=== PATIENT | male | born 1960 | race African-American/Black ===

== ENCOUNTER 2020-07-26 18:53 | Inpatient (IN) | payer MEDICAID ==
[~2020-07-26] VITALS: Ht 170.2 cm; Wt 64.6 kg
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
[2020-07-26] MEDS ORDERED: ASPIRIN CHEWABLE 81 MG TABLET. PO ONE (19:45)
[2020-07-26] MEDS ORDERED: IV NORMAL SALINE 1000ML BAG 1,000 ML IV ONE (19:45)
[2020-07-26 20:05] LABS: BASO % 0 % (0-3); EOS % 0 % (0-3); HEMATOCRIT 35.5 % (39.0-53.0); HEMOGLOBIN 11.6 g/dL (13.0-17.5); LYMPH # 0.8 x10^3/uL (1.0-4.8); LYMPH % 20 % (24-48); MEAN CORPUSCULAR HEMOGLOBIN 25 pg (25-35); MEAN CORPUSCULAR HGB CONC 33 g/dL (31-37); MEAN CORPUSCULAR VOLUME 77 fL (79-100); MONO # 0.2 x10^3/uL (0.0-1.1); MONO % 6 % (0-9); NEUT % 74 % (31-73); PLATELET COUNT 78 x10^3/uL (140-400); RED BLOOD COUNT 4.61 x10^6/uL (4.30-5.70); RED CELL DISTRIBUTION WIDTH 20.6 % (11.5-14.5)
--- NOTE | 2020-07-26 20:17 | RAD ---
Exam: Chest one view INDICATION: Chest pain TECHNIQUE: Frontal view of the chest Comparisons: None FINDINGS: The cardiomediastinal silhouette and pulmonary vessels are within normal limits. The lung and pleural spaces are clear. IMPRESSION: No acute cardiopulmonary process. Electronically signed by: En Robertson MD (07/26/2020 8:15 PM) [facility]
--- NOTE | 2020-07-26 20:19 | EKG ---
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
[2020-07-26 20:24] LABS: CALCIUM 8.8 mg/dL (8.5-10.1); CREATININE 1.2 mg/dL (0.7-1.3); GFR 61.6; POTASSIUM 4.1 mmol/L (3.5-5.1)
[2020-07-26 20:29] LABS: ALBUMIN 3.8 g/dL (3.4-5.0); ALBUMIN/GLOBULIN RATIO 0.7 (1.0-1.7); TOTAL BILIRUBIN 1.3 mg/dL (0.2-1.0); TOTAL PROTEIN 9.2 g/dL (6.4-8.2)
[2020-07-26] MEDS ORDERED: NITROGLYCERIN SUBLINGUAL 0.4 MG BOTTLE OF 25. SL PRN ×2 (20:30→21:00)
[2020-07-26] MEDS ORDERED: MORPHINE SULFATE 4 MG/ML VIAL. IV ONE ×2 (20:30→23:00)
[2020-07-26 20:33] LABS: PLT ESTIMATE DECREASED (ADEQUATE)
[2020-07-26 20:36] LABS: ANISOCYTOSIS MOD; HYPOCHROMIA SLIGHT; TARGET CELLS OCC
--- NOTE | 2020-07-26 20:43 | RAD ---
Exam: CT head and cervical spine without contrast INDICATION: Fall to back of head TECHNIQUE: Sequential axial images through the head and cervical spine were obtained without the admi nistration of IV contrast. Comparisons: None FINDINGS: Head: No focal parenchymal lesion or hemorrhage is identified. There is no midline shift or sulcal effaceme nt. No acute vascular territory infarction is identified. Monahan-white distinction is preserved. The ventricular system is within normal limits without compression hydrocephalus. The basal cisterns are well maintained. The visualized portions of the paranasal sinuses and mastoid air cells are well-pneumatized. No acute fractures. Cervical spine: Straightening of cervical spine which may positional. Vertebral body heights are well-maintained. Fracture to the cervical spine is not identified. Multilevel spondylotic change in the cervical spine with greatest degenerative disc disease at C4-C5 and C5-C6. Visualized paraspinal soft tissues are unremarkable. IMPRESSION: 1. No acute intracranial abnormality. 2. Negative CT C-spine for acute traumatic injury. Exposure: One or more of the following in the visualized dose reduction techniques were utilized for this examination: 1. Automated exposure control 2. Adjustment of the MA and/or KV according to patient size Use of iterative of reconstructive technique Electronically signed by: En Robertson MD (07/26/2020 8:41 PM) [facility]
[2020-07-26] MEDS ORDERED: ONDANSETRON PF 4 MG/2 ML VIAL. IVP ONE (20:45)
[2020-07-26] MEDS ORDERED: ACETAMINOPHEN 325 MG TABLET. PO PRN (21:00)
--- NOTE | 2020-07-26 21:42 | RAD ---
Exam: Right knee 4 views INDICATION: Fall, right lateral knee TECHNIQUE: Frontal, lateral and oblique views of the right knee Comparisons: None FINDINGS: Intramedullary nail noted in the distal femur with numerous fixation screws. There is a fracture defo rmity noted at the distal metaphysis seen best on lateral view. Severe degenerative change is noted a t the knee joint. Diffuse osteopenia. Soft tissues are unremarkable. IMPRESSION: Postoperative changes with chronic deformity at the right knee. Cortical step-off at the distal femor al metaphysis seen best on lateral view which could be chronic in etiology. No definite acute fractur es Electronically signed by: En Robertson MD (07/26/2020 9:40 PM) [facility]
[2020-07-26] MEDS ORDERED: HALOPERIDOL LACTATE 5 MG/ML VIAL. IVP PRN (22:45)
[2020-07-26] MEDS ORDERED: LIDO:MAALOX 1:1 20 ML SINGLE DOSE. PO PRN (22:45)
[2020-07-26] MEDS: THIAMINE 100 MG TABLET. PO SCH (23:00)
[2020-07-26 23:45] VITALS: BP 137/89
[2020-07-26] MEDS ORDERED: ONDANSETRON PF 4 MG/2 ML VIAL. IVP PRN (23:45)
--- NOTE | 2020-07-26 23:45 | NUR ---
Admit from ED to [facility] room 200 via [facility]. Patient transferred self from [facility] to bed independently sliding over to bed. Alert on arrival. Agitated. Demanding. , Tamela, , at bedside. Patient c/o N/V but request food and soda. Patient reports he drinks ETOH "occasionally, 2 times a week". ,Tamela, reports patient drinks pint of Vodka daily. Patient reports he does not take any medications at home but then says he has Asthma and takes Albuterol Inhaler. Orientated to room and call light. Reviewed POC to include Lab draws, tele monitor and not to get out of bed without assist. Verbalized understanding. In bed eating box lunch. Call light at hand. Bed alarm on.
[2020-07-27] MEDS ORDERED: VENTOLIN HFA18 GM INH (01:28)
[2020-07-27 04:12] VITALS: BP 134/80
[2020-07-27 07:00] VITALS: BP 142/84
[2020-07-27 07:44] LABS: AMPHETAMINE/METHAMPHETAMINE NEG (NEG); BARBITURATES NEG (NEG); BENZODIAZEPINES NEG (NEG); CANNABINOIDS NEG (NEG); COCAINE NEG (NEG); METHADONE NEG (NEG); OPIATES POS (NEG); PHENCYCLIDINE NEG (NEG)
--- NOTE | 2020-07-27 08:15 | NUR ---
Pt demanding food and drinks as well as "morphine, 4 mg". Pt very lethargic and unable to keep eyes open. Pt stating his stomach hurts, although, continues to ask for copious amounts of food and drinks. Pt offered GI cocktail and declined. Explained to patient that morphine is no longer available and that the physician would need to be contacted for stronger pain medication. Pt then asking for IVP Ativan. at bedside shortly after and declining Ativan for patient due to his drowsiness. Pt resting and at bedside. Call light within reach.
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
[2020-07-27] MEDS: FOLIC ACID 1 MG TABLET. PO SCH (09:32)
[2020-07-27] MEDS: MULTIVITAMIN with MINERAL TABLET. PO SCH (09:32)
[2020-07-27] MEDS: THIAMINE 100 MG TABLET. PO SCH (09:32)
[2020-07-27 11:00] VITALS: BP 117/76
[2020-07-27] MEDS ORDERED: guaiFENesin ORAL 200 MG/10 ML LIQUID. PO PRN (11:00)
[2020-07-27] MEDS ORDERED: ACETAMINOPHEN 650 MG SUPP.RECT. PR PRN (11:00)
[2020-07-27] MEDS ORDERED: LORazepam 0.5 MG TABLET PO PRN (11:00)
[2020-07-27] MEDS ORDERED: ALBUTEROL SULFATE 2.5 MG/3 ML NEBU. NEB PRN (11:00)
[2020-07-27] MEDS ORDERED: cloNIDine HCL 0.1 MG TABLET PO PRN (11:00)
[2020-07-27] MEDS ORDERED: MULTIVIT INFUSN,ADULT 4,VIT K 10 ML, THIAMINE INJ 100 MG, FOLIC ACID INJ 1 MG in IV NOR... IV ONE (11:00)
[2020-07-27] MEDS ORDERED: SODIUM PHOSPHATES 19/7GM 133 ML ENEMA. PR PRN (11:00)
[2020-07-27] MEDS ORDERED: ACETAMINOPHEN 325 MG TABLET. PO PRN (11:00)
[2020-07-27] MEDS ORDERED: NON FORMULARY ITEM (Albuterol Sulfate (Ventolin Hfa Inhaler) 2 PUFF) INH PRN (11:00)
[2020-07-27] MEDS ORDERED: MAG HYDROX/ALUMINUM HYD/SIMETH 30 ML ORAL.SUSP PO PRN (11:00)
[2020-07-27] MEDS ORDERED: ONDANSETRON PF 4 MG/2 ML VIAL. IV PRN (11:00)
[2020-07-27] MEDS ORDERED: DOCUSATE SODIUM 100 MG CAPSULE. PO PRN (11:00)
[2020-07-27] MEDS ORDERED: 0.9 % SODIUM CHLORIDE 10 ML DISP.SYRIN. IV PRN (11:00)
[2020-07-27] MEDS ORDERED: IV NORMAL SALINE 1000ML BAG 1,000 ML IV SCH (11:00)
[2020-07-27] MEDS: PANTOPRAZOLE IV PUSH 40 MG VIAL. IVP SCH (11:28)
[2020-07-27] MEDS: ENOXAPARIN 40 MG/0.4 ML SYRINGE. SQ SCH (11:32)
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
--- NOTE | 2020-07-27 11:57 | NUR ---
SS following for discharge planning. SS reviewed pt chart and discussed with pt RN. pt is from home and is currently on room air. PAT team consulted for ETOH. Pt on CIWA protocol. Discharge plan is to home when medically ready. SS will continue to follow for discharge planning.
--- NOTE | 2020-07-27 12:26 | PDOC2 ---
BENITO LOPEZ SUPPORT COORDINATOR 07/27/20 1226: CARDIAC CONSULT DATE OF CONSULT Date of Consult DATE: 07/27/20 TIME: 12:16 REASON FOR CONSULT Reason for Consult: Chest pain REFERRING PHYSICIAN Referring Physician: Dr. Muhammad SOURCE Source: Chart review, Patient HISTORY OF PRESENT ILLNESS HISTORY OF PRESENT ILLNESS This is a 59 yo male who presented secondary to chest pain and nausea/vomiting. Patient is very difficult historian as he is very drowsy. Reportedly fell in the bathroom 2 days ago. Reports he was getting up off the stool and felt dizzy and passed out. Family at bedside reports he had been drinking prior to this occurring. Got up and headed back to his bed and reports his right leg gave out on him and he fell to the ground again, which is where found him on the floor. Developed nausea and vomiting that day, which persisted. Yesterday, developed sharp pain in his central chest/epigastric region. Pain persisted so he came to the ED for further evaluation and treatment. He denies any diaphore sis, palpitations, or shortness of breath. Has a history of hypertension and possibly AFIB. Moved here from [place] 1 month ago and has not taken any of his routine medications as he has not estab lished care with a PCP here. 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) PAST SURGICAL HISTORY Past Surgical History: Cholecystectomy, Cataract Removal, Colon Resection FAMILY HISTORY Family History: Hypertension SOCIAL HISTORY Smoke: No ALCOHOL: heavy Drugs: None Lives: with Family CURRENT MEDICATIONS CURRENT MEDICATIONS Current Medications Medications (Trade) Dose Ordered Sig/Kyler Route PRN Reason Start Time Stop Time Status Last Admin Dose Admin Aspirin (Aspirin Chewable) 162 mg 1X ONCE PO 07/26/20 19:45 07/26/20 20:29 DC 07/26/20 20:35 Sodium Chloride 1,000 ml @ 150 mls/hr 1X ONCE IV 07/26/20 19:45 07/27/20 02:24 DC 07/26/20 20:36 Nitroglycerin (Nitrostat) 0.4 mg PRN Q5MIN PRN SL CHEST PAIN 07/26/20 20:30 07/26/20 21:04 DC 07/26/20 20:41 Morphine Sulfate (Morphine Sulfate) 4 mg 1X ONCE IV 07/26/20 20:30 07/26/20 20:31 DC 07/26/20 20:36 Ondansetron HCl (Zofran) 4 mg 1X ONCE IVP 07/26/20 20:45 07/26/20 20:46 DC 07/26/20 20:52 Morphine Sulfate (Morphine Sulfate) 4 mg 1X ONCE IV 07/26/20 23:00 07/26/20 23:01 DC 07/26/20 22:40 Multivitamins (Thera M Plus) 1 tab DAILY PO 07/27/20 09:00 07/27/20 09:32 Folic Acid (Folic Acid) 1 mg DAILY PO 07/27/20 09:00 07/27/20 09:32 Thiamine Mononitrate (Vitamin B-1) 100 mg DAILY PO 07/26/20 23:00 07/27/20 09:32 Lorazepam (Ativan Inj) 2 mg PRN Q1HR PRN IV For CIWA 15 or greater 07/26/20 22:45 07/27/20 09:32 Haloperidol Lactate (Haldol Inj) 5 mg PRN Q4HRS PRN IVP Hallucinatns,Confusn,Delirium 07/26/20 22:45 07/27/20 00:48 Ondansetron HCl (Zofran) 4 mg PRN Q6HRS PRN IVP NAUSEA/VOMITING 1ST CHOICE 07/26/20 23:45 07/26/20 23:44 Sodium Chloride 1,000 ml @ 100 mls/hr Q10H IV 07/27/20 11:00 07/27/20 11:31 Enoxaparin Sodium (Lovenox 40mg Syringe) 40 mg Q24H SQ 07/27/20 12:00 07/27/20 11:32 Pantoprazole Sodium (PROTONIX VIAL for IV PUSH) 40 mg DAILYAC IVP 07/27/20 11:15 07/27/20 11:28 ALLERGIES ALLERGIES: Coded Allergies: Iodine and Iodide Containing Produc (Verified Allergy, Severe, 07/26/20) Penicillins (Verified Allergy, Intermediate, 07/26/20) ROS Review of System 14 point ROS conducted with pertinent positives noted above in HPI PHYSICAL EXAM General: No acute distress HEENT: Atraumatic Lungs: Other (diminished bases) Heart: Regular rate Abdomen: Soft Extremities: No edema Skin: No significant lesion Neuro: Sensation intact Psych/Mental Status: Other (drowsy) MUSCULOSKELETAL: Osteoarthritic changes both hands VITALS/I&O VITALS/I&O: Vital Signs Date Time Temp Pulse Resp B/P (MAP) Pulse Ox O2 Delivery O2 Flow Rate FiO2 07/27/20 11:00 97.8 84 16 117/76 (90) 99 Room Air 97.8 I & O 07/26/20 07/26/20 07/27/20 15:00 23:00 07:00 Intake Total 620 ml Balance 620 ml LABS Lab: Laboratory Tests Test 07/26/20 19:50 07/26/20 23:30 07/27/20 01:30 07/27/20 07:00 White Blood Count 4.0 x10^3/uL (4.0-11.0) Red Blood Count 4.61 x10^6/uL (4.30-5.70) Hemoglobin 11.6 g/dL (13.0-17.5) L Hematocrit 35.5 % (39.0-53.0) L Mean Corpuscular Volume 77 fL (79-100) L Mean Corpuscular Hemoglobin 25 pg (25-35) Mean Corpuscular Hemoglobin Concent 33 g/dL (31-37) Red Cell Distribution Width 20.6 % (11.5-14.5) H Platelet Count 78 x10^3/uL (140-400) L Neutrophils (%) (Auto) 74 % (31-73) H Lymphocytes (%) (Auto) 20 % (24-48) L Monocytes (%) (Auto) 6 % (0-9) Eosinophils (%) (Auto) 0 % (0-3) Basophils (%) (Auto) 0 % (0-3) Neutrophils # (Auto) 3.0 x10^3/uL (1.8-7.7) Lymphocytes # (Auto) 0.8 x10^3/uL (1.0-4.8) L Monocytes # (Auto) 0.2 x10^3/uL (0.0-1.1) Eosinophils # (Auto) 0.0 x10^3/uL (0.0-0.7) Basophils # (Auto) 0.0 x10^3/uL (0.0-0.2) Platelet Estimate Decreased (ADEQUATE) Hypochromasia Slight Anisocytosis Mod Target Cells Occ Sodium Level 139 mmol/L (136-145) Potassium Level 4.1 mmol/L (3.5-5.1) Chloride Level 100 mmol/L (98-107) Carbon Dioxide Level 24 mmol/L (21-32) Anion Gap 15 (6-14) H Blood Urea Nitrogen 5 mg/dL (8-26) L Creatinine 1.2 mg/dL (0.7-1.3) Estimated GFR (Cockcroft-Gault) 61.6 BUN/Creatinine Ratio 4 (6-20) L Glucose Level 98 mg/dL (70-99) Calcium Level 8.8 mg/dL (8.5-10.1) Total Bilirubin 1.3 mg/dL (0.2-1.0) H Aspartate Amino Transferase (AST) 159 U/L (15-37) H Alanine Aminotransferase (ALT) 88 U/L (16-63) H Alkaline Phosphatase 114 U/L (46-116) Troponin I Quantitative < 0.017 ng/mL (0.000-0.055) < 0.017 ng/mL (0.000-0.055) < 0.017 ng/mL (0.000-0.055) WI-Gpz-D-Type Natriuretic Peptide 65 pg/mL (0-124) Total Protein 9.2 g/dL (6.4-8.2) H Albumin 3.8 g/dL (3.4-5.0) Albumin/Globulin Ratio 0.7 (1.0-1.7) L Lipase 113 U/L (73-393) Iron Level 36 ug/dL (65-175) L Total Iron Binding Capacity 341 ug/dL (250-450) Iron Saturation 11 % (15-34) L Urine Opiates Screen Pos (NEG) Urine Methadone Screen Neg (NEG) Urine Barbiturates Neg (NEG) Urine Phencyclidine Screen Neg (NEG) Urine Amphetamine/Methamphetamine Neg (NEG) Urine Benzodiazepines Screen Neg (NEG) Urine Cocaine Screen Neg (NEG) Urine Cannabinoids Screen Neg (NEG) Urine Ethyl Alcohol Neg (NEG) Laboratory Tests 07/26/20 19:50 Laboratory Tests 07/26/20 19:50 ASSESSMENT/PLAN ASSESSMENT/PLAN 1. Chest pain, atypical; AMI ruled out 2. ? syncopal episode; CT head without acute findings. No acute arrhythmias noted on tele. Most probably vasovagal 3. H/o seizure; previously on Dilantin, but has not taken 4. PAFIB; maintaining SR. Not on OAC 5. Thrombocytopenia 6. Nausea/vomiting 7. Transaminitis 8. ETOH abuse 9. H/o gastric cancer s/p resection and chemo Recommendations Lipids Echo to assess LV systolic function Start metoprolol for rate control No ASA/OAC with thrombocytopenia Probable outpatient ischemic evaluation Discussed importance of medical compliance AUDRA KELSEY MD 07/28/20 0824: CARDIAC CONSULT ASSESSMENT/PLAN ASSESSMENT/PLAN Patient seen and examined 07/27/2020. Agree with SENIOR EXECUTIVE ASSISTANT's assessment and plan. Chest pain with atypical features. Myocardial infarction has been ruled out. Syncope most probably vasovagal. Telemetry without any significant arrhythmias so far. Check 2D echo to assess LV systolic function. PAF maintaining sinus rhythm. Agree with outpatient ischemic evaluation. Thank you for your consultation. BENITO LOPEZ APRN Jul 27, 2020 12:26 AUDRA KELSEY MD Jul 28, 2020 08:24
[2020-07-27 14:18] LABS: BILIRUBIN,URINE SMALL (NEG); CLARITY,URINE CLEAR; COLOR,URINE AMBER; NITRITE,URINE NEGATIVE (NEG); PROTEIN,URINE 30 mg/dL (NEG-TRACE)
--- NOTE | 2020-07-27 14:20 | RAD ---
Exam: CT abdomen/pelvis without intravenous contrast Indication: Pain, vomiting. History of stomach cancer. Comparison: None Technique: Helical CT imaging performed of the abdomen and pelvis without the use of intravenous cont rast. Sagittal and coronal reformats were obtained. One or more of the following individualized dose reduction techniques were utilized for this examinat ion: 1. Automated exposure control 2. Adjustment of the mA and/or kV according to patient size 3. Use of iterative reconstruction technique. Findings: Inherently limited evaluation without intravenous contrast. There is also mild motion artifact. Lower chest: Lung bases are clear. Liver: The liver is diffusely low in attenuation. Gallbladder/Biliary Tree: The gallbladder is surgically absent. Common bile duct is mildly dilated me asuring 9 mm, likely related to cholecystectomy state. Pancreas: Normal. Spleen: Normal. Adrenal Glands: Normal. Kidneys/Ureters/Bladder: The kidneys and, ureters, and bladder are normal. Reproductive Organs: Prostate gland is normal. Stomach, small bowel, and colon: There are surgical changes of gastric bypass. There is some fluid in the proximal duodenum. No bowel obstruction. Appendix not definitively visualized but there is no in flammation in the right lower quadrant. Vasculature: Abdominal aorta is normal in caliber. Lymph Nodes: No lymphadenopathy. Peritoneum and retroperitoneum: No free fluid or free air. Bones: There is some vague lucencies in the iliac bones. For example, a 6 mm lucency on image 59 seri es 2.. No acute fracture. Impression: 1. Surgical changes of gastric bypass. 2. Cholecystectomy. Mildly dilated common bile duct, likely related to postcholecystectomy state. 3. Hepatic steatosis. 4. There are scattered lucent lesions in the iliac bones. 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 Metastatic disease less likely but given the patient's history of gaetano gnancy correlation with outside prior imaging to ensure stability is recommended. Otherwise, follow-u p CT or MRI could be obtained in 3-6 months. Electronically signed by: Genevieve Tucker MD (07/27/2020 2:17 PM) [id number]
[2020-07-27 14:44] LABS: BACTERIA,URINE FEW /HPF (0-FEW); RBC,URINE 0 /HPF (0-2); WBC,URINE >40 /HPF (0-4)
[2020-07-27 15:00] VITALS: BP 129/80
[2020-07-27] MEDS: HYDROcodone/APAP 5/325MG 1 TAB TABLET PO PRN ×2 (15:59→20:24)
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
[2020-07-27] MEDS ORDERED: diphenhydrAMINE HCL 25 MG CAPSULE PO PRN (17:30)
[2020-07-27 19:53] VITALS: BP 133/94
[2020-07-27] MEDS: DOXYCYCLINE HYCLATE 100 MG TABLET PO SCH (21:10)
[2020-07-27 22:42] VITALS: BP 124/76
[2020-07-28 03:04] VITALS: BP 131/86
[2020-07-28] MEDS: HYDROcodone/APAP 5/325MG 1 TAB TABLET PO PRN ×3 (05:29→16:52)
[2020-07-28 06:03] LABS: BASO % 0 % (0-3); EOS % 0 % (0-3); HEMATOCRIT 31.1 % (39.0-53.0); HEMOGLOBIN 9.8 g/dL (13.0-17.5); LYMPH # 0.7 x10^3/uL (1.0-4.8); LYMPH % 18 % (24-48); MEAN CORPUSCULAR HEMOGLOBIN 25 pg (25-35); MEAN CORPUSCULAR HGB CONC 31 g/dL (31-37); MEAN CORPUSCULAR VOLUME 80 fL (79-100); MONO # 0.5 x10^3/uL (0.0-1.1); MONO % 11 % (0-9); NEUT # 2.9 x10^3/uL (1.8-7.7); NEUT % 71 % (31-73); PLATELET COUNT 78 x10^3/uL (140-400); RED CELL DISTRIBUTION WIDTH 20.4 % (11.5-14.5); WHITE BLOOD COUNT 4.1 x10^3/uL (4.0-11.0)
[2020-07-28 06:47] LABS: ALBUMIN/GLOBULIN RATIO 0.8 (1.0-1.7); CALCIUM 7.5 mg/dL (8.5-10.1); CREATININE 0.9 mg/dL (0.7-1.3); GFR 103.8; TOTAL BILIRUBIN 0.5 mg/dL (0.2-1.0)
[2020-07-28 07:00] VITALS: BP 132/82
--- NOTE | 2020-07-28 09:02 | PDOC ---
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 Last administered on 07/26/20at 20:36; Start 07/26/20 at 20:30; Stop 07/26/20 at 20:31; Status DC Ondansetron HCl (Zofran) 4 mg 1X ONCE IVP Last administered on 07/26/20at 20:52; Start 07/26/20 at 20:45; Stop 07/26/20 at 20:46; Status DC Acetaminophen (Tylenol) 650 mg PRN Q4HRS PRN PO FEVER > 100.3'F; Start 07/26/20 at 21:00; Stop 07/27/20 at 20:59; Status Cancel Nitroglycerin (Nitrostat) 0.4 mg PRN Q5MIN PRN SL CHEST PAIN; Start 07/26/20 at 21:00; Stop 07/27/20 at 20:59; Status DC Morphine Sulfate (Morphine Sulfate) 4 mg 1X ONCE IV Last administered on 07/26/20at 22:40; Start 07/26/20 at 23:00; Stop 07/26/20 at 23:01; Status DC Multivitamins (Thera M Plus) 1 tab DAILY PO Last administered on 07/27/20at 09:32; Start 07/27/20 at 09:00 Folic Acid (Folic Acid) 1 mg DAILY PO Last administered on 07/27/20at 09:32; Start 07/27/20 at 09:00 Thiamine Mononitrate (Vitamin B-1) 100 mg DAILY PO Last administered on 07/27/20at 09:32; Start 07/26/20 at 23:00 Lorazepam (Ativan) 1 mg PRN Q1HR PRN PO For CIWA 8-14; Start 07/26/20 at 22:45 Lorazepam (Ativan) 2 mg PRN Q1HR PRN PO For CIWA 15 or greater; Start 07/26/20 at 22:45 Lorazepam (Ativan Inj) 1 mg PRN Q1HR PRN IV For CIWA 8-14; Start 07/26/20 at 22:45 Lorazepam (Ativan Inj) 2 mg PRN Q1HR PRN IV For CIWA 15 or greater Last administered on 07/28/20at 05:25; Start 07/26/20 at 22:45 Haloperidol Lactate (Haldol Inj) 5 mg PRN Q4HRS PRN IVP Hallucinatns,Confusn,Delirium Last administered on 07/27/20at 00:48; Start 07/26/20 at 22:45 Multi-Ingredient Mouthwash/Gargle (Gi Cocktail) 20 ml PRN QID PRN PO CHEST PAIN; Start 07/26/20 at 22:45 Ondansetron HCl (Zofran) 4 mg PRN Q6HRS PRN IVP NAUSEA/VOMITING 1ST CHOICE Last administered on 07/26/20at 23:44; Start 07/26/20 at 23:45; Stop 07/27/20 at 22:01; Status DC Sodium Chloride (Normal Saline Flush) 3 ml QSHIFT PRN IV AFTER MEDS AND BLOOD DRAWS; Start 07/27/20 at 11:00 Sodium Chloride 1,000 ml @ 100 mls/hr Q10H IV Last administered on 07/27/20at 11:31; Start 07/27/20 at 11:00 Multivitamins 10 ml/Thiamine HCl 100 mg/Folic Acid 1 mg/Sodium Chloride 1,011.2 ml @ 125 mls/ hr 1X ONCE IV ; Start 07/27/20 at 11:00; Stop 07/27/20 at 19:05; Status UNV Ondansetron HCl (Zofran) 4 mg PRN Q4HRS PRN IV NAUSEA/VOMITING; Start 07/27/20 at 11:00 Acetaminophen (Tylenol) 650 mg PRN Q4HRS PRN PO TEMP OVER 100.4F OR MILD PAIN; Start 07/27/20 at 11:00 Acetaminophen (Tylenol Supp) 650 mg PRN Q4HRS PRN MO TEMP OVER 100.4F OR MILD PAIN; Start 07/27/20 at 11:00 Al Hydroxide/Mg Hydroxide (Mylanta Plus Xs) 30 ml PRN DAILY PRN PO HEARTBURN / GAS; Start 07/27/20 at 11:00 Clonidine HCl (Catapres) 0.1 mg PRN Q6HRS PRN PO SBP>160 OR DBP>90; Start 07/27/20 at 11:00 Sodium Monofluorophosphate (Fleet Adult) 133 ml PRN DAILY PRN MO CONSTIPATION; Start 07/27/20 at 11:00 Docusate Sodium (Colace) 100 mg PRN BID PRN PO HARD STOOLS; Start 07/27/20 at 11:00 Albuterol Sulfate (Ventolin Neb Soln) 2.5 mg PRN Q4HRS PRN NEB SHORTNESS OF BREATH; Start 07/27/20 at 11:00 Guaifenesin (Robitussin) 200 mg PRN Q4HRS PRN PO COUGH; Start 07/27/20 at 11:00 Lorazepam (Ativan) 0.5 mg PRN Q4HRS PRN PO ANXIETY / AGITATION; Start 07/27/20 at 11:00 Lorazepam (Ativan Inj) 2 mg PRN Q4HRS PRN IV ANXIETY / AGITATION; Start 07/27/20 at 11:00 Enoxaparin Sodium (Lovenox 40mg Syringe) 40 mg Q24H SQ Last administered on 07/27/20at 11:32; Start 07/27/20 at 12:00 Non-Formulary Medication (Albuterol Sulfate (Ventolin Hfa Inhaler)) 2 puff Q4HRS PRN INH SHORTNESS OF BREATH; Start 07/27/20 at 11:00; Status UNV Pantoprazole Sodium (PROTONIX VIAL for IV PUSH) 40 mg DAILYAC IVP Last administered on 07/27/20at 11:28; Start 07/27/20 at 11:15 Citalopram Hydrobromide (CeleXA) 10 mg DAILY PO ; Start 07/28/20 at 09:00 Doxycycline Hyclate (Vibra-Tab) 100 mg BID PO Last administered on 07/27/20at 21:10; Start 07/27/20 at 21:00 Acetaminophen/ Hydrocodone Bitart (Lortab 5/325) 1 tab PRN Q4HRS PRN PO MODERATE - SEVERE PAIN Last administered on 07/28/20at 05:29; Start 07/27/20 at 15:45 Diphenhydramine HCl (Benadryl) 25 mg PRN Q6HRS PRN PO ITCHING; Start 07/27/20 at 17:30 Metoprolol Tartrate (Lopressor) 25 mg BID PO ; Start 07/28/20 at 09:00 Active Scripts Active Reported Ventolin Hfa Inhaler (Albuterol Sulfate) 18 Gm Hfa.aer.ad 2 Puff INH Q4HRS PRN Vitals/I & O Vital Sign - Last 24 Hours 07/27/20 07/27/20 07/27/20 07/27/20 11:00 15:00 15:59 17:04 Temp 97.8 98.0 97.8 98.0 Pulse 84 78 Resp 16 16 B/P (MAP) 117/76 (90) 129/80 (96) Pulse Ox 99 98 98 98 O2 Delivery Room Air Room Air Room Air Room Air 07/27/20 07/27/20 07/27/20 07/27/20 19:29 19:53 20:24 21:30 Temp 98.0 98.0 Pulse 92 Resp 16 20 20 B/P (MAP) 133/94 (107) Pulse Ox 100 O2 Delivery Room Air Room Air Nasal Cannula Room Air 07/27/20 07/28/20 07/28/20 07/28/20 22:42 03:04 05:29 07:00 Temp 98.4 98.9 98.0 98.4 98.9 98.0 Pulse 83 79 70 Resp 16 16 18 18 B/P (MAP) 124/76 (92) 131/86 (101) 132/82 (99) Pulse Ox 96 99 99 O2 Delivery Room Air Room Air Room Air Room Air Intake and Output 07/27/20 07/27/20 07/28/20 15:00 23:00 07:00 Intake Total 430 ml 980 ml Output Total 150 ml 650 ml Balance 430 ml 830 ml -650 ml Justicifation of Admission Dx: Justifications for Admission: Justification of Admission Dx: Yes Altered Mental Status: Altered Mental Status Comments: alcohol abuse, weakness post trauma KRISTYN JEROME MD Jul 28, 2020 09:02
[2020-07-28] MEDS: THIAMINE 100 MG TABLET. PO SCH (09:28)
[2020-07-28] MEDS: DOXYCYCLINE HYCLATE 100 MG TABLET PO SCH ×2 (09:28→20:50)
[2020-07-28] MEDS: METOPROLOL TART IMMED RELEASE 25 MG TABLET. PO SCH ×2 (09:29→20:49)
[2020-07-28] MEDS: CITALOPRAM 10 MG TABLET. PO SCH (09:29)
[2020-07-28] MEDS: MULTIVITAMIN with MINERAL TABLET. PO SCH (09:29)
[2020-07-28] MEDS: FOLIC ACID 1 MG TABLET. PO SCH (09:29)
[2020-07-28] MEDS: PANTOPRAZOLE IV PUSH 40 MG VIAL. IVP SCH (09:30)
[2020-07-28 10:19] LABS: CHOLESTEROL/HDL RATIO 1.6
--- NOTE | 2020-07-28 10:58 | PDOC ---
Date of Service: DATE: 07/28/20 TIME: 10:53 Subjective: Subjective: Vomited last night but kept some breakfast down today. Abdomen sore. Wants to know what we're doing for his stomach. Objective: Objective: Reviewed neuro and cardiology notes. Plans for echo. Vital Signs: Vital Signs Date Time Temp Pulse Resp B/P (MAP) Pulse Ox O2 Delivery O2 Flow Rate FiO2 07/28/20 09:29 70 132/82 07/28/20 08:00 Room Air 07/28/20 07:00 98.0 18 99 98.0 Labs: Laboratory Tests Test 07/27/20 12:32 07/28/20 05:50 Urine Collection Type Unknown Urine Color Cheli Urine Clarity Clear Urine pH 8.0 Urine Specific [place] 1.015 Urine Protein 30 mg/dL Urine Glucose (UA) Negative mg/dL Urine Ketones (Stick) Trace mg/dL Urine Blood Negative Urine Nitrite Negative Urine Bilirubin Small Urine Urobilinogen Dipstick 1.0 mg/dL Urine Leukocyte Esterase Large Urine RBC 0 /HPF Urine WBC >40 /HPF Urine Squamous Epithelial Cells Few /LPF Urine Bacteria Few /HPF White Blood Count 4.1 x10^3/uL Red Blood Count 3.90 x10^6/uL Hemoglobin 9.8 g/dL Hematocrit 31.1 % Mean Corpuscular Volume 80 fL Mean Corpuscular Hemoglobin 25 pg Mean Corpuscular Hemoglobin Concent 31 g/dL Red Cell Distribution Width 20.4 % Platelet Count 78 x10^3/uL Neutrophils (%) (Auto) 71 % Lymphocytes (%) (Auto) 18 % Monocytes (%) (Auto) 11 % Eosinophils (%) (Auto) 0 % Basophils (%) (Auto) 0 % Neutrophils # (Auto) 2.9 x10^3/uL Lymphocytes # (Auto) 0.7 x10^3/uL Monocytes # (Auto) 0.5 x10^3/uL Eosinophils # (Auto) 0.0 x10^3/uL Basophils # (Auto) 0.0 x10^3/uL Sodium Level 136 mmol/L Potassium Level 4.0 mmol/L Chloride Level 103 mmol/L Carbon Dioxide Level 25 mmol/L Anion Gap 8 Blood Urea Nitrogen 5 mg/dL Creatinine 0.9 mg/dL Estimated GFR (Cockcroft-Gault) 103.8 BUN/Creatinine Ratio 6 Glucose Level 88 mg/dL Calcium Level 7.5 mg/dL Total Bilirubin 0.5 mg/dL Aspartate Amino Transf (AST/SGOT) 65 U/L Alanine Aminotransferase (ALT/SGPT) 50 U/L Alkaline Phosphatase 75 U/L Total Protein 7.0 g/dL Albumin 3.0 g/dL Albumin/Globulin Ratio 0.8 Triglycerides Level 26 mg/dL Cholesterol Level 121 mg/dL LDL Cholesterol, Calculated 41 mg/dL VLDL Cholesterol, Calculated 5 mg/dL Non-HDL Cholesterol Calculated 46 mg/dL HDL Cholesterol 75 mg/dL Cholesterol/HDL Ratio 1.6 Imaging: CT A/P 07/27 Impression: 1. Surgical changes of gastric bypass. 2. Cholecystectomy. Mildly dilated common bile duct, likely related to postcholecystectomy state. 3. Hepatic steatosis. 4. There are scattered lucent lesions in the iliac bones. These are most likely benign hemangiomas or due to heterogeneous marrow. Metastatic disease less likely but given the patient's history of malignancy correlation with outside prior imaging to ensure stability is recommended. Otherwise, follow-up CT or MRI could be obtained in 3-6 months. PE: GEN: NAD - was asleep, present LUNGS: CTAB HEART: RRR ABD: NABS, soft, ?muscular soreness, non-distended NEURO/PSYCH: A & O 3 A/P: ACP, syncope N/v, abd pain - better today? ADITI, thrombocytopenia (stable), abnormal LFTs (better) H/o gastric/SB cancer s/p resection and chemo - details unclear - CT as above Chronic pain, alcohol overuse -- Continue PPI, diet as able. Outpt scopes - our office can arrange. Avoid alcohol and NSAIDs. Justicifation of Admission Dx: Justifications for Admission: Justification of Admission Dx: Yes DEDRICK MIXON Jul 28, 2020 10:58
[2020-07-28 11:00] VITALS: BP 128/82
--- NOTE | 2020-07-28 13:07 | PDOC ---
BENITO LOPEZ REFRIGERATION MECHANIC 07/28/20 1307: CARDIO Progress Notes Date and Time Date of Service 07/28/20 Time of Evaluation 1300 Subjective Subjective: No Chest Pain, No shortness of breath, No Palpitations Vitals Vitals Vital Signs Date Time Temp Pulse Resp B/P (MAP) Pulse Ox O2 Delivery O2 Flow Rate FiO2 07/28/20 11:14 Room Air 07/28/20 11:00 97.9 75 20 128/82 (97) 99 97.9 Weight Weight [ ] Input and Output Intake and Output Intake and Output 07/28/20 07:00 Intake Total 1410 ml Output Total 800 ml Balance 610 ml Intake Oral 1410 ml Output Urine Total 800 ml Laboratory Labs Laboratory Tests Test 07/28/20 05:50 White Blood Count 4.1 x10^3/uL (4.0-11.0) Red Blood Count 3.90 x10^6/uL (4.30-5.70) Hemoglobin 9.8 g/dL (13.0-17.5) Hematocrit 31.1 % (39.0-53.0) Mean Corpuscular Volume 80 fL (79-100) Mean Corpuscular Hemoglobin 25 pg (25-35) Mean Corpuscular Hemoglobin Concent 31 g/dL (31-37) Red Cell Distribution Width 20.4 % (11.5-14.5) Platelet Count 78 x10^3/uL (140-400) Neutrophils (%) (Auto) 71 % (31-73) Lymphocytes (%) (Auto) 18 % (24-48) Monocytes (%) (Auto) 11 % (0-9) Eosinophils (%) (Auto) 0 % (0-3) Basophils (%) (Auto) 0 % (0-3) Neutrophils # (Auto) 2.9 x10^3/uL (1.8-7.7) Lymphocytes # (Auto) 0.7 x10^3/uL (1.0-4.8) Monocytes # (Auto) 0.5 x10^3/uL (0.0-1.1) Eosinophils # (Auto) 0.0 x10^3/uL (0.0-0.7) Basophils # (Auto) 0.0 x10^3/uL (0.0-0.2) Sodium Level 136 mmol/L (136-145) Potassium Level 4.0 mmol/L (3.5-5.1) Chloride Level 103 mmol/L (98-107) Carbon Dioxide Level 25 mmol/L (21-32) Anion Gap 8 (6-14) Blood Urea Nitrogen 5 mg/dL (8-26) Creatinine 0.9 mg/dL (0.7-1.3) Estimated GFR (Cockcroft-Gault) 103.8 BUN/Creatinine Ratio 6 (6-20) Glucose Level 88 mg/dL (70-99) Calcium Level 7.5 mg/dL (8.5-10.1) Total Bilirubin 0.5 mg/dL (0.2-1.0) Aspartate Amino Transf (AST/SGOT) 65 U/L (15-37) Alanine Aminotransferase (ALT/SGPT) 50 U/L (16-63) Alkaline Phosphatase 75 U/L (46-116) Total Protein 7.0 g/dL (6.4-8.2) Albumin 3.0 g/dL (3.4-5.0) Albumin/Globulin Ratio 0.8 (1.0-1.7) Triglycerides Level 26 mg/dL (0-150) Cholesterol Level 121 mg/dL (0-200) LDL Cholesterol, Calculated 41 mg/dL (0-100) VLDL Cholesterol, Calculated 5 mg/dL (0-40) Non-HDL Cholesterol Calculated 46 mg/dL (0-129) HDL Cholesterol 75 mg/dL (40-60) Cholesterol/HDL Ratio 1.6 Physical Exam HEENT: Neck Supple W Full Motion Chest: Symmetric LUNGS: Clear to Auscultation Heart: RRR Abdomen: Soft N/T Extremities: No Edema Neurology: alert, oriented, follow commands Assessment Assessment 1. Chest pain, atypical; AMI ruled out .Most probably MSK in origin 2. Syncopal episode; CT head without acute findings. No acute arrhythmias noted on tele. Most probably vasovagal 3. H/o seizure; previously on Dilantin, but has not taken 4. PAFIB; maintaining SR. Not on OAC 5. Thrombocytopenia 6. Nausea/vomiting 7. Transaminitis 8. ETOH abuse 9. H/o gastric cancer s/p resection and chemo Recommendations Echo today to assess LV systolic function Metoprolol for rate control No ASA/OAC with thrombocytopenia Outpatient ischemic evaluation Supportive care Justicifation of Admission Dx: Justifications for Admission: Justification of Admission Dx: Yes Altered Mental Status: Altered Mental Status AUDRA KELSEY MD 07/28/201939: CARDIO Progress Notes Assessment Assessment Patient seen and examined. Agree with GOVERNMENT SERVICES PROFESSIONAL's assessment and plan. Chest pain with atypical features. Myocardial infarction has been ruled out. Doubt ACS Syncope most probably vasovagal. Telemetry without any significant arrhythmias so far. PAF maintaining sinus rhythm. Agree with outpatient ischemic evaluation. BENITO LOPEZ APRN Jul 28, 2020 13:07 AUDRA KELSEY MD Jul 28, 2020 19:40
[2020-07-28] MEDS: ENOXAPARIN 40 MG/0.4 ML SYRINGE. SQ SCH (13:11)
--- NOTE | 2020-07-28 13:18 | NUR ---
SS following up with discharge planning. SS reviewed pt chart and discussed with pt RN. Pt is currently on room air. PT recommended correction unit. Pt has out of state Medicaid. Jose Rafael met with pt for ETOH and pt was provided with resources. Pt cleared by PAT team. SS met with pt to discuss discharge planning. Pt reported that he wants to return to home. Pt reported that he is engaged and just moved from [place], [place] one week ago. He reported that he wants assistance with setting up Medicaid in [place]. Pt reported that he wants information on Disability as well. Pt also requested information on transportation. SS contacted [employer], [id number], and requested that they meet with pt. SS provided pt with application for [place] Medicaid and information on applying for disability. SS provided pt with information on [employer] [facility]. Pt's RN notified. SS will continue to follow for discharge planning.
--- NOTE | 2020-07-28 13:34 | PDOC ---
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 He was having chest pain at the time and had just defecated. Controversy whether he drinks a lot of alcohol, I do not think he is in alcohol withdrawal right now, he is on alcohol withdrawal precautions. Plan No need for further neurological studies Patient prefers not to take an anticonvulsant. Neurology will follow as needed during this hospital stay Cardiology evaluation. Subjective Still lightheaded Objective Vital Signs Date Time Temp Pulse Resp B/P (MAP) Pulse Ox O2 Delivery O2 Flow Rate FiO2 07/28/20 11:14 Room Air 07/28/20 11:00 97.9 75 20 128/82 (97) 99 97.9 Intake and Output 07/28/20 07:00 Intake Total 1410 ml Output Total 800 ml Balance 610 ml Intake Oral 1410 ml Output Urine Total 800 ml PHYSICAL EXAM Alert. Oriented to time, place and person. PERRL. EOMI. CN: no focal findings. Muscle tone: normal. Muscle strength: 5/5 DTR: 1+ Plantar reflex: Flexor Gait: not examined in bed. Sensory exam: no abnormal findings. No cerebellar signs elicited. Review of Relevant I have reviewed the following items justen (where applicable) has been applied. Labs Laboratory Tests Test 07/26/20 19:50 07/26/20 23:30 07/27/20 01:30 07/27/20 07:00 White Blood Count 4.0 x10^3/uL (4.0-11.0) Red Blood Count 4.61 x10^6/uL (4.30-5.70) Hemoglobin 11.6 g/dL (13.0-17.5) Hematocrit 35.5 % (39.0-53.0) Mean Corpuscular Volume 77 fL (79-100) Mean Corpuscular Hemoglobin 25 pg (25-35) Mean Corpuscular Hemoglobin Concent 33 g/dL (31-37) Red Cell Distribution Width 20.6 % (11.5-14.5) Platelet Count 78 x10^3/uL (140-400) Neutrophils (%) (Auto) 74 % (31-73) Lymphocytes (%) (Auto) 20 % (24-48) Monocytes (%) (Auto) 6 % (0-9) Eosinophils (%) (Auto) 0 % (0-3) Basophils (%) (Auto) 0 % (0-3) Neutrophils # (Auto) 3.0 x10^3/uL (1.8-7.7) Lymphocytes # (Auto) 0.8 x10^3/uL (1.0-4.8) Monocytes # (Auto) 0.2 x10^3/uL (0.0-1.1) Eosinophils # (Auto) 0.0 x10^3/uL (0.0-0.7) Basophils # (Auto) 0.0 x10^3/uL (0.0-0.2) Platelet Estimate Decreased (ADEQUATE) Hypochromasia Slight Anisocytosis Mod Target Cells Occ Sodium Level 139 mmol/L (136-145) Potassium Level 4.1 mmol/L (3.5-5.1) Chloride Level 100 mmol/L (98-107) Carbon Dioxide Level 24 mmol/L (21-32) Anion Gap 15 (6-14) Blood Urea Nitrogen 5 mg/dL (8-26) Creatinine 1.2 mg/dL (0.7-1.3) Estimated GFR (Cockcroft-Gault) 61.6 BUN/Creatinine Ratio 4 (6-20) Glucose Level 98 mg/dL (70-99) Calcium Level 8.8 mg/dL (8.5-10.1) Total Bilirubin 1.3 mg/dL (0.2-1.0) Aspartate Amino Transf (AST/SGOT) 159 U/L (15-37) Alanine Aminotransferase (ALT/SGPT) 88 U/L (16-63) Alkaline Phosphatase 114 U/L (46-116) Troponin I Quantitative < 0.017 ng/mL (0.000-0.055) < 0.017 ng/mL (0.000-0.055) < 0.017 ng/mL (0.000-0.055) AL-Gaw-W-Type Natriuretic Peptide 65 pg/mL (0-124) Total Protein 9.2 g/dL (6.4-8.2) Albumin 3.8 g/dL (3.4-5.0) Albumin/Globulin Ratio 0.7 (1.0-1.7) Lipase 113 U/L (73-393) Iron Level 36 ug/dL (65-175) Total Iron Binding Capacity 341 ug/dL (250-450) Iron Saturation 11 % (15-34) Urine Opiates Screen Pos (NEG) Urine Methadone Screen Neg (NEG) Urine Barbiturates Neg (NEG) Urine Phencyclidine Screen Neg (NEG) Urine Amphetamine/Methamphetamine Neg (NEG) Urine Benzodiazepines Screen Neg (NEG) Urine Cocaine Screen Neg (NEG) Urine Cannabinoids Screen Neg (NEG) Urine Ethyl Alcohol Neg (NEG) Test 07/27/20 12:32 07/28/20 05:50 Urine Collection Type Unknown Urine Color Cheli Urine Clarity Clear Urine pH 8.0 (<5.0-8.0) Urine Specific [place] 1.015 (1.000-1.030) Urine Protein 30 mg/dL (NEG-TRACE) Urine Glucose (UA) Negative mg/dL (NEG) Urine Ketones (Stick) Trace mg/dL (NEG) Urine Blood Negative (NEG) Urine Nitrite Negative (NEG) Urine Bilirubin Small (NEG) Urine Urobilinogen Dipstick 1.0 mg/dL (0.2 mg/dL) Urine Leukocyte Esterase Large (NEG) Urine RBC 0 /HPF (0-2) Urine WBC >40 /HPF (0-4) Urine Squamous Epithelial Cells Few /LPF Urine Bacteria Few /HPF (0-FEW) White Blood Count 4.1 x10^3/uL (4.0-11.0) Red Blood Count 3.90 x10^6/uL (4.30-5.70) Hemoglobin 9.8 g/dL (13.0-17.5) Hematocrit 31.1 % (39.0-53.0) Mean Corpuscular Volume 80 fL (79-100) Mean Corpuscular Hemoglobin 25 pg (25-35) Mean Corpuscular Hemoglobin Concent 31 g/dL (31-37) Red Cell Distribution Width 20.4 % (11.5-14.5) Platelet Count 78 x10^3/uL (140-400) Neutrophils (%) (Auto) 71 % (31-73) Lymphocytes (%) (Auto) 18 % (24-48) Monocytes (%) (Auto) 11 % (0-9) Eosinophils (%) (Auto) 0 % (0-3) Basophils (%) (Auto) 0 % (0-3) Neutrophils # (Auto) 2.9 x10^3/uL (1.8-7.7) Lymphocytes # (Auto) 0.7 x10^3/uL (1.0-4.8) Monocytes # (Auto) 0.5 x10^3/uL (0.0-1.1) Eosinophils # (Auto) 0.0 x10^3/uL (0.0-0.7) Basophils # (Auto) 0.0 x10^3/uL (0.0-0.2) Sodium Level 136 mmol/L (136-145) Potassium Level 4.0 mmol/L (3.5-5.1) Chloride Level 103 mmol/L (98-107) Carbon Dioxide Level 25 mmol/L (21-32) Anion Gap 8 (6-14) Blood Urea Nitrogen 5 mg/dL (8-26) Creatinine 0.9 mg/dL (0.7-1.3) Estimated GFR (Cockcroft-Gault) 103.8 BUN/Creatinine Ratio 6 (6-20) Glucose Level 88 mg/dL (70-99) Calcium Level 7.5 mg/dL (8.5-10.1) Total Bilirubin 0.5 mg/dL (0.2-1.0) Aspartate Amino Transf (AST/SGOT) 65 U/L (15-37) Alanine Aminotransferase (ALT/SGPT) 50 U/L (16-63) Alkaline Phosphatase 75 U/L (46-116) Total Protein 7.0 g/dL (6.4-8.2) Albumin 3.0 g/dL (3.4-5.0) Albumin/Globulin Ratio 0.8 (1.0-1.7) Triglycerides Level 26 mg/dL (0-150) Cholesterol Level 121 mg/dL (0-200) LDL Cholesterol, Calculated 41 mg/dL (0-100) VLDL Cholesterol, Calculated 5 mg/dL (0-40) Non-HDL Cholesterol Calculated 46 mg/dL (0-129) HDL Cholesterol 75 mg/dL (40-60) Cholesterol/HDL Ratio 1.6 Laboratory Tests Test 07/28/20 05:50 White Blood Count 4.1 x10^3/uL (4.0-11.0) Red Blood Count 3.90 x10^6/uL (4.30-5.70) Hemoglobin 9.8 g/dL (13.0-17.5) Hematocrit 31.1 % (39.0-53.0) Mean Corpuscular Volume 80 fL (79-100) Mean Corpuscular Hemoglobin 25 pg (25-35) Mean Corpuscular Hemoglobin Concent 31 g/dL (31-37) Red Cell Distribution Width 20.4 % (11.5-14.5) Platelet Count 78 x10^3/uL (140-400) Neutrophils (%) (Auto) 71 % (31-73) Lymphocytes (%) (Auto) 18 % (24-48) Monocytes (%) (Auto) 11 % (0-9) Eosinophils (%) (Auto) 0 % (0-3) Basophils (%) (Auto) 0 % (0-3) Neutrophils # (Auto) 2.9 x10^3/uL (1.8-7.7) Lymphocytes # (Auto) 0.7 x10^3/uL (1.0-4.8) Monocytes # (Auto) 0.5 x10^3/uL (0.0-1.1) Eosinophils # (Auto) 0.0 x10^3/uL (0.0-0.7) Basophils # (Auto) 0.0 x10^3/uL (0.0-0.2) Sodium Level 136 mmol/L (136-145) Potassium Level 4.0 mmol/L (3.5-5.1) Chloride Level 103 mmol/L (98-107) Carbon Dioxide Level 25 mmol/L (21-32) Anion Gap 8 (6-14) Blood Urea Nitrogen 5 mg/dL (8-26) Creatinine 0.9 mg/dL (0.7-1.3) Estimated GFR (Cockcroft-Gault) 103.8 BUN/Creatinine Ratio 6 (6-20) Glucose Level 88 mg/dL (70-99) Calcium Level 7.5 mg/dL (8.5-10.1) Total Bilirubin 0.5 mg/dL (0.2-1.0) Aspartate Amino Transf (AST/SGOT) 65 U/L (15-37) Alanine Aminotransferase (ALT/SGPT) 50 U/L (16-63) Alkaline Phosphatase 75 U/L (46-116) Total Protein 7.0 g/dL (6.4-8.2) Albumin 3.0 g/dL (3.4-5.0) Albumin/Globulin Ratio 0.8 (1.0-1.7) Triglycerides Level 26 mg/dL (0-150) Cholesterol Level 121 mg/dL (0-200) LDL Cholesterol, Calculated 41 mg/dL (0-100) VLDL Cholesterol, Calculated 5 mg/dL (0-40) Non-HDL Cholesterol Calculated 46 mg/dL (0-129) HDL Cholesterol 75 mg/dL (40-60) Cholesterol/HDL Ratio 1.6 Medications Current Medications Aspirin (Aspirin Chewable) 162 mg 1X ONCE PO Last administered on 07/26/20at 20:35; Start 07/26/20 at 19:45; Stop 07/26/20 at 20:29; Status DC Sodium Chloride 1,000 ml @ 150 mls/hr 1X ONCE IV Last administered on 07/26/20at 20:36; Start 07/26/20 at 19:45; Stop 07/27/20 at 02:24; Status DC Nitroglycerin (Nitrostat) 0.4 mg PRN Q5MIN PRN SL CHEST PAIN Last administered on 07/26/20at 20:41; Start 07/26/20 at 20:30; Stop 07/26/20 at 21:04; Status DC Morphine Sulfate (Morphine Sulfate) 4 mg 1X ONCE IV Last administered on 07/26/20at 20:36; Start 07/26/20 at 20:30; Stop 07/26/20 at 20:31; Status DC Ondansetron HCl (Zofran) 4 mg 1X ONCE IVP Last administered on 07/26/20at 20:52; Start 07/26/20 at 20:45; Stop 07/26/20 at 20:46; Status DC Acetaminophen (Tylenol) 650 mg PRN Q4HRS PRN PO FEVER > 100.3'F; Start 07/26/20 at 21:00; Stop 07/27/20 at 20:59; Status Cancel Nitroglycerin (Nitrostat) 0.4 mg PRN Q5MIN PRN SL CHEST PAIN; Start 07/26/20 at 21:00; Stop 07/27/20 at 20:59; Status DC Morphine Sulfate (Morphine Sulfate) 4 mg 1X ONCE IV Last administered on 07/26/20at 22:40; Start 07/26/20 at 23:00; Stop 07/26/20 at 23:01; Status DC Multivitamins (Thera M Plus) 1 tab DAILY PO Last administered on 07/28/20at 09:29; Start 07/27/20 at 09:00 Folic Acid (Folic Acid) 1 mg DAILY PO Last administered on 07/28/20at 09:29; Start 07/27/20 at 09:00 Thiamine Mononitrate (Vitamin B-1) 100 mg DAILY PO Last administered on 07/28/20at 09:28; Start 07/26/20 at 23:00 Lorazepam (Ativan) 1 mg PRN Q1HR PRN PO For CIWA 8-14; Start 07/26/20 at 22:45 Lorazepam (Ativan) 2 mg PRN Q1HR PRN PO For CIWA 15 or greater; Start 07/26/20 at 22:45 Lorazepam (Ativan Inj) 1 mg PRN Q1HR PRN IV For CIWA 8-14; Start 07/26/20 at 22:45 Lorazepam (Ativan Inj) 2 mg PRN Q1HR PRN IV For CIWA 15 or greater Last administered on 07/28/20at 05:25; Start 07/26/20 at 22:45 Haloperidol Lactate (Haldol Inj) 5 mg PRN Q4HRS PRN IVP Hallucinatns,Confusn,Delirium Last administered on 07/27/20at 00:48; Start 07/26/20 at 22:45 Multi-Ingredient Mouthwash/Gargle (Gi Cocktail) 20 ml PRN QID PRN PO CHEST PAIN; Start 07/26/20 at 22:45 Ondansetron HCl (Zofran) 4 mg PRN Q6HRS PRN IVP NAUSEA/VOMITING 1ST CHOICE Last administered on 07/26/20at 23:44; Start 07/26/20 at 23:45; Stop 07/27/20 at 22:01; Status DC Sodium Chloride (Normal Saline Flush) 3 ml QSHIFT PRN IV AFTER MEDS AND BLOOD DRAWS; Start 07/27/20 at 11:00 Sodium Chloride 1,000 ml @ 100 mls/hr Q10H IV Last administered on 07/27/20at 11:31; Start 07/27/20 at 11:00; Stop 07/28/20 at 13:30; Status DC Multivitamins 10 ml/Thiamine HCl 100 mg/Folic Acid 1 mg/Sodium Chloride 1,011.2 ml @ 125 mls/ hr 1X ONCE IV ; Start 07/27/20 at 11:00; Stop 07/27/20 at 19:05; Status UNV Ondansetron HCl (Zofran) 4 mg PRN Q4HRS PRN IV NAUSEA/VOMITING; Start 07/27/20 at 11:00 Acetaminophen (Tylenol) 650 mg PRN Q4HRS PRN PO TEMP OVER 100.4F OR MILD PAIN; Start 07/27/20 at 11:00 Acetaminophen (Tylenol Supp) 650 mg PRN Q4HRS PRN GA TEMP OVER 100.4F OR MILD PAIN; Start 07/27/20 at 11:00 Al Hydroxide/Mg Hydroxide (Mylanta Plus Xs) 30 ml PRN DAILY PRN PO HEARTBURN / GAS; Start 07/27/20 at 11:00 Clonidine HCl (Catapres) 0.1 mg PRN Q6HRS PRN PO SBP>160 OR DBP>90; Start 07/27/20 at 11:00 Sodium Monofluorophosphate (Fleet Adult) 133 ml PRN DAILY PRN GA CONSTIPATION; Start 07/27/20 at 11:00 Docusate Sodium (Colace) 100 mg PRN BID PRN PO HARD STOOLS; Start 07/27/20 at 11:00 Albuterol Sulfate (Ventolin Neb Soln) 2.5 mg PRN Q4HRS PRN NEB SHORTNESS OF BREATH; Start 07/27/20 at 11:00 Guaifenesin (Robitussin) 200 mg PRN Q4HRS PRN PO COUGH; Start 07/27/20 at 11:00 Lorazepam (Ativan) 0.5 mg PRN Q4HRS PRN PO ANXIETY / AGITATION; Start 07/27/20 at 11:00 Lorazepam (Ativan Inj) 2 mg PRN Q4HRS PRN IV ANXIETY / AGITATION; Start 07/27/20 at 11:00 Enoxaparin Sodium (Lovenox 40mg Syringe) 40 mg Q24H SQ Last administered on 07/28/20at 13:11; Start 07/27/20 at 12:00 Non-Formulary Medication (Albuterol Sulfate (Ventolin Hfa Inhaler)) 2 puff Q4HRS PRN INH SHORTNESS OF BREATH; Start 07/27/20 at 11:00; Status UNV Pantoprazole Sodium (PROTONIX VIAL for IV PUSH) 40 mg DAILYAC IVP Last administered on 07/28/20at 09:30; Start 07/27/20 at 11:15; Stop 07/28/20 at 10:33; Status DC Citalopram Hydrobromide (CeleXA) 10 mg DAILY PO Last administered on 07/28/20at 09:29; Start 07/28/20 at 09:00 Doxycycline Hyclate (Vibra-Tab) 100 mg BID PO Last administered on 07/28/20at 09:28; Start 07/27/20 at 21:00 Acetaminophen/ Hydrocodone Bitart (Lortab 5/325) 1 tab PRN Q4HRS PRN PO MODERATE - SEVERE PAIN Last administered on 07/28/20at 11:14; Start 07/27/20 at 15:45 Diphenhydramine HCl (Benadryl) 25 mg PRN Q6HRS PRN PO ITCHING; Start 07/27/20 at 17:30 Metoprolol Tartrate (Lopressor) 25 mg BID PO Last administered on 07/28/20at 09:29; Start 07/28/20 at 09:00 Pantoprazole Sodium (Protonix) 40 mg DAILYAC PO ; Start 07/29/20 at 07:30 Active Scripts Active Reported Ventolin Hfa Inhaler (Albuterol Sulfate) 18 Gm Hfa.aer.ad 2 Puff INH Q4HRS PRN Vitals/I & O Vital Sign - Last 24 Hours 07/27/20 07/27/20 07/27/20 07/27/20 15:00 15:59 17:04 19:29 Temp 98.0 98.0 Pulse 78 Resp 16 B/P (MAP) 129/80 (96) Pulse Ox 98 98 98 O2 Delivery Room Air Room Air Room Air Room Air 407/27/20 07/27/20 07/27/20 19:53 20:24 21:30 22:42 Temp 98.0 98.4 98.0 98.4 Pulse 92 83 Resp 16 20 20 16 B/P (MAP) 133/94 (107) 124/76 (92) Pulse Ox 100 96 O2 Delivery Room Air Nasal Cannula Room Air Room Air 07/28/20 07/28/20 07/28/20 07/28/20 03:04 05:29 07:00 08:00 Temp 98.9 98.0 98.9 98.0 Pulse 79 70 Resp 16 18 18 B/P (MAP) 131/86 (101) 132/82 (99) Pulse Ox 99 99 O2 Delivery Room Air Room Air Room Air Room Air 07/28/20 07/28/20 07/28/20 09:29 11:00 11:14 Temp 97.9 97.9 Pulse 70 75 Resp 20 B/P (MAP) 132/82 128/82 (97) Pulse Ox 99 O2 Delivery Room Air Room Air Intake and Output 07/27/20 07/27/20 07/28/20 15:00 23:00 07:00 Intake Total 430 ml 980 ml Output Total 150 ml 650 ml Balance 430 ml 830 ml -650 ml Justicifation of Admission Dx: Justifications for Admission: Justification of Admission Dx: Yes Altered Mental Status: Altered Mental Status IVON LORA MD Jul 28, 2020 13:34
[2020-07-28 15:00] VITALS: BP 120/73
[2020-07-28 17:10] LABS: COMMENT IMMUNOFIX SERUM Note: (.); IMMUNOGLOBULIN A 463 mg/dL (61-437); IMMUNOGLOBULIN G 1961 mg/dL (603-1613); IMMUNOGLOBULIN M 312 mg/dL (20-172)
[2020-07-28 19:58] VITALS: BP 144/86
[2020-07-28 23:06] VITALS: BP 145/84
[2020-07-29 02:54] VITALS: BP 125/80
[2020-07-29 07:00] VITALS: BP 121/67
[2020-07-29] MEDS ORDERED: PANTOPRAZOLE 40 MG TABLET.DR. PO SCH (07:30)
[2020-07-29] MEDS: THIAMINE 100 MG TABLET. PO SCH (08:09)
[2020-07-29] MEDS: DOXYCYCLINE HYCLATE 100 MG TABLET PO SCH (08:09)
[2020-07-29] MEDS: MULTIVITAMIN with MINERAL TABLET. PO SCH (08:09)
[2020-07-29] MEDS: CITALOPRAM 10 MG TABLET. PO SCH (08:09)
[2020-07-29] MEDS: HYDROcodone/APAP 5/325MG 1 TAB TABLET PO PRN (08:09)
[2020-07-29] MEDS: FOLIC ACID 1 MG TABLET. PO SCH (08:09)
[2020-07-29] MEDS: METOPROLOL TART IMMED RELEASE 25 MG TABLET. PO SCH (08:10)
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
[2020-07-29] MEDS ORDERED: Folic Acid PO (09:38)
[2020-07-29] MEDS ORDERED: MULT1TAB92 PO (09:38)
[2020-07-29] MEDS ORDERED: THIA100T22 PO (09:38)
[2020-07-29] MEDS ORDERED: PANT40TA77 PO (09:38)
[2020-07-29] MEDS ORDERED: CITA10TA8 PO (09:38)
[2020-07-29] MEDS ORDERED: METO25TA4 PO (09:38)
[2020-07-29] MEDS ORDERED: DOXY100T PO (09:38)
--- NOTE | 2020-07-29 09:40 | DISCH ---
DISCHARGE INSTRUCTIONS Condition on Discharge Condition on Discharge: Stable Activity After Discharge Activity Instructions for Disc: Activity as tolerated Lifting Instructions after Dis: No pulling or pushing Driving Instructions after Dis: Do not drive Diet after Discharge Diet after Discharge: Cardiac Liquid Texture: Thin Liquid Checks after Discharge Checks after discharge: Check blood press - daily Contacting the DR. after DC Call your doctor for: If your condition worsens Follow-Up Follow up with: PCP SATURDAY Treatment/Equipment after DC Adaptive Equipment Issued: Front wheeled walker KRISTYN JEROME MD Jul 29, 2020 09:40
[2020-07-29 09:45] LABS: BASO % 0 % (0-3); EOS % 0 % (0-3); HEMATOCRIT 31.7 % (39.0-53.0); HEMOGLOBIN 10.2 g/dL (13.0-17.5); LYMPH # 1.1 x10^3/uL (1.0-4.8); LYMPH % 23 % (24-48); MEAN CORPUSCULAR HEMOGLOBIN 25 pg (25-35); MEAN CORPUSCULAR HGB CONC 32 g/dL (31-37); MEAN CORPUSCULAR VOLUME 79 fL (79-100); MONO # 0.5 x10^3/uL (0.0-1.1); MONO % 12 % (0-9); NEUT # 2.9 x10^3/uL (1.8-7.7); NEUT % 65 % (31-73); PLATELET COUNT 107 x10^3/uL (140-400); RED BLOOD COUNT 4.04 x10^6/uL (4.30-5.70); RED CELL DISTRIBUTION WIDTH 20.3 % (11.5-14.5); WHITE BLOOD COUNT 4.5 x10^3/uL (4.0-11.0)
--- NOTE | 2020-07-29 09:49 | CARD ---
MR#: [id number] Date of Study: 07/29/2020 Ordering Physician: BENITO LOPEZ, Referring Physician: BENITO LOPEZ, Tech: Agatha Warner [facility] APPROVED REPORT EXAM: Two-dimensional and M-mode echocardiogram with Doppler and color Doppler. Other Information Quality : AverageHR: 82bpm Rhythm : NSR INDICATION Chest Pain RISK FACTORS Hypertension Hyperlipidemia 2D DIMENSIONS RVDd3.1 (2.9-3.5cm)Left Atrium(2D)2.9 (1.6-4.0cm) IVSd1.1 (0.7-1.1cm)Aortic Root(2D)3.7 (2.0-3.7cm) LVDd3.9 (3.9-5.9cm)LVOT Diameter2.5 (1.8-2.4cm) PWd1.1 (0.7-1.1cm)LVDs2.5 (2.5-4.0cm) FS (%) 35.0 %SV42.2 ml LVEF(%)65.0 (>50%) Aortic Valve AoV Peak Campos.82.8cm/sAoV VTI19.1cm AO Peak GR.2.7mmHgLVOT VTI 15.46cm AO Mean GR.2mmHg Mitral Valve MV E Ospfdbiq13.3cm/sMV DECEL [id number] MV A Zrgnspmn14.3cm/sE/A Ratio0.9 TDI Lateral E' P. V8.70cm/sMedial E' P. V7.70cm/s E/Lateral E'7.6E/Medial E'8.6 Pulmonary Valve PV Peak Btaqoydg64.2cm/s Tricuspid Valve TR P. [id number]/sTR Peak Gr.14mmHg LEFT VENTRICLE The left ventricle is normal size. There is borderline concentric left ventricular hypertrophy. The l eft ventricular systolic function is normal. Estimated ejection fraction 55-60%. There is normal LV segmental wall motion. The left ventricular diastolic function and filling is normal for age. RIGHT VENTRICLE The right ventricle is normal size. There is normal right ventricular wall thickness. The right ventr icular systolic function is normal. ATRIA The left atrium size is normal. The right atrium size is normal. The interatrial septum is intact wit h no evidence for an atrial septal defect or patent foramen ovale as noted on 2-D or Doppler imaging. AORTIC VALVE The aortic valve is normal in structure and function. Doppler and Color Flow revealed no significant aortic regurgitation. There is no significant aortic valvular stenosis. MITRAL VALVE The mitral valve is normal in structure and function. There is no evidence of mitral valve prolapse. There is no mitral valve stenosis. Doppler and Color-flow revealed mild mitral regurgitation. TRICUSPID VALVE The tricuspid valve is normal in structure and function. Doppler and Color Flow revealed no tricuspid valve regurgitation noted. There is no tricuspid valve stenosis. PULMONIC VALVE The pulmonary valve is normal in structure and function. Doppler and Color Flow revealed no pulmonic valvular regurgitation. GREAT VESSELS The aortic root is borderline dialated. The IVC is normal in size and collapses >50% with inspiration . PERICARDIAL EFFUSION There is no evidence of significant pericardial effusion. Critical Notification Critical Value: No <Conclusion> The left ventricular systolic function is normal. Estimated ejection fraction 55-60%. There is normal LV segmental wall motion. Mild mitral regurgitation. There is no evidence of significant pericardial effusion. Signed by : Tan Schmitz, Electronically Approved : 07/29/2020 09:49:12
[2020-07-29 10:07] VITALS: BP 129/78
--- NOTE | 2020-07-29 11:05 | NUR ---
SS following up with discharge planning. SS reviewed pt chart and discussed with pt RN. Pt is currently on room air. Discharge order on the chart for home with self care.
[2020-07-29] MEDS ORDERED: ALBU2.5V8 IH (11:12)
--- NOTE | 2020-07-29 11:30 | NUR ---
Discharge Note: ARIANNA HERNANDEZ 2 MELROSE Discharge instructions and discharge home medications reviewed with Patient and a copy given. All questions have been answered and understanding verbalized. The following instructions and handouts were given: discharge instructions, doctors' numbers to follow up with, BP education, drinking cessation education, CP education, medication education. Discontinued lines and drains: Peripheral IV intact. Patient discharged to Home or Self Care with Significant Other via Wheelchair at 1130.
== END 2020-07-29 11:25 | disposition home or self-care (01) | DRG 392 ==
LOC: ER 18:53 → 2 NORTH 21:02
PROVIDERS: ADMIT Internal Medicine; ATTEND Internal Medicine
DX: K21.9 Gastro-esophageal reflux disease without esophagitis (principal); F10.239 Alcohol dependence with withdrawal, unspecified; N39.0 Urinary tract infection, site not specified; R07.89 Other chest pain; D69.6 Thrombocytopenia, unspecified; E61.1 Iron deficiency; G89.29 Other chronic pain; I10 Essential (primary) hypertension; I25.10 Atherosclerotic heart disease of native coronary artery without angina pectoris; I48.0 Paroxysmal atrial fibrillation; J44.9 Chronic obstructive pulmonary disease, unspecified; K76.0 Fatty (change of) liver, not elsewhere classified; K83.8 Other specified diseases of biliary tract; M21.371 Foot drop, right foot; Z79.899 Other long term (current) drug therapy; Z82.49 Family history of ischemic heart disease and other diseases of the circulatory system; Z85.028 Personal history of other malignant neoplasm of stomach; Z86.73 Personal history of transient ischemic attack (TIA), and cerebral infarction without residual deficits; Z90.49 Acquired absence of other specified parts of digestive tract; Z98.84 Bariatric surgery status; Z88.0 Allergy status to penicillin; Z88.8 Allergy status to other drugs, medicaments and biological substances; Z71.41 Alcohol abuse counseling and surveillance of alcoholic; W18.39XA Other fall on same level, initial encounter; Y93.89 Activity, other specified; Y92.89 Other specified places as the place of occurrence of the external cause; Y99.8 Other external cause status
CPT/HCPCS: 36415; 70450; 71045; 72125; 73564; 74176; 80053; 80061; 80307; 81001; 82784; 83540; 83550; 83690; 83880; 84484; 85025; 86334; 86335; 87040; 87086; 93005; 93306; 96361; 96374; 96375; 96376; C9113; J1630; J1650; J2060; J2270; J2405; J7030; 97530-GO; 97530-GP; 99285-25; G0378; Q0163

== ENCOUNTER 2020-09-01 11:57 | Emergency (ER) | payer MEDICAID ==
[~2020-09-01] VITALS: Ht 180.3 cm; Wt 77.0 kg
[~2020-09-01 11:57] MED LIST: ALBU2.5V8 IH; CITA10TA8 PO; DOXY100T PO; Folic Acid PO; METO25TA4 PO; MULT1TAB92 PO; PANT40TA77 PO; THIA100T22 PO; VENTOLIN HFA18 GM INH
[2020-09-01] MEDS ORDERED: NITROGLYCERIN SUBLINGUAL 0.4 MG BOTTLE OF 25. SL PRN (13:00)
[2020-09-01] MEDS ORDERED: ASPIRIN CHEWABLE 81 MG TABLET. PO ONE (13:00)
[2020-09-01 13:30] LABS: BASO % 0 % (0-3); EOS % 0 % (0-3); HEMATOCRIT 31.9 % (39.0-53.0); HEMOGLOBIN 10.6 g/dL (13.0-17.5); LYMPH # 1.7 x10^3/uL (1.0-4.8); LYMPH % 56 % (24-48); MEAN CORPUSCULAR HEMOGLOBIN 25 pg (25-35); MEAN CORPUSCULAR HGB CONC 33 g/dL (31-37); MEAN CORPUSCULAR VOLUME 74 fL (79-100); MONO # 0.1 x10^3/uL (0.0-1.1); MONO % 5 % (0-9); NEUT # 1.2 x10^3/uL (1.8-7.7); NEUT % 39 % (31-73); PLATELET COUNT 105 x10^3/uL (140-400); RED BLOOD COUNT 4.33 x10^6/uL (4.30-5.70); RED CELL DISTRIBUTION WIDTH 20.2 % (11.5-14.5)
[2020-09-01 13:34] LABS: CALCIUM 8.3 mg/dL (8.5-10.1); CREATININE 1.1 mg/dL (0.7-1.3); GFR 82.1; POTASSIUM 4.1 mmol/L (3.5-5.1)
[2020-09-01 13:41] LABS: ALBUMIN 4.1 g/dL (3.4-5.0); ALBUMIN/GLOBULIN RATIO 0.9 (1.0-1.7); TOTAL BILIRUBIN 0.5 mg/dL (0.2-1.0); TOTAL PROTEIN 8.5 g/dL (6.4-8.2)
--- NOTE | 2020-09-01 13:54 | ED.ADGEN ---
Past Medical History Past Medical History: A-Fib, CAD, Cancer, COPD, CVA, Seizure Additional Past Medical Histor: vertigo, chronic back pain, stomach cancer Past Surgical History: Other Additional Past Surgical Histo: "they cut out some of my stomach when I had cancer.", R leg, hip, arm, foot Smoking Status: Never Smoker Alcohol Use: Occasionally General Adult EDM: Chief Complaint: MECHANICAL FALL HPI: HPI: Patient is a 60-year-old male who presents to the emergency room after falling. Patient states that he woke up this morning and had some chest pain and vomiting. He states this is very similar to what happened to him about a month ago. He states it feels like a sharp pressure-like pain. His thought maybe he was having too much anxiety and recommended that he try to take a bath. He states that he got into the bathtub and she was giving him a bath when he stood up and fell backwards hitting his head. He states that he was unconscious for quite some time up to 4 minutes. He states that to him he never lost consciousness and woke right up. He states that he continued to have the same symptoms he had prior to hitting his head. He states his chest pain is his worst pain. He does have some head and neck pain. Patient is not currently on blood thinners. Review of Systems: Review of Systems: Complete ROS is negative unless otherwise documented in HPI Current Medications: Current Medications Medications (Trade) Dose Ordered Sig/[facility] Start Time Stop Time Status Last Admin Dose Admin Aspirin (Aspirin Chewable) 324 mg 1X ONCE 09/01/20 13:00 09/01/20 13:06 DC Nitroglycerin (Nitrostat) 0.4 mg PRN Q5MIN PRN 09/01/20 13:00 09/01/20 13:21 0.4 MG Allergies: Allergies: Allergies Coded Allergies Type Severity Reaction Last Updated Verified Iodine and Iodide Containing Produc Allergy Severe 07/26/20 Yes Penicillins Allergy Intermediate 07/26/20 Yes Physical Exam: PE: General: Awake, alert, NAD. Well Nourished, well hydrated. Cooperative HEENT: Atraumatic, EOMI, PERRL, airway patent, moist oral mucosa, no nasal septal hematoma, no facial crepitus or deformity Neck: Supple, trachea midline,diffuse neck tenderness Respiratory: CTA bilaterally, normal effort, no wheezing/crackles, no crepitus CV: RRR, no murmur, cap refill <2, 2+ bilateral radial/DP pulses GI: Soft, nondistended, nontender, no masses MSK: No obvious deformities, pelvis stable and nontender Skin: Warm, dry, intact Neuro: A&O x3, speech NL, sensory and motor grossly intact, no focal deficits Psych: Intoxicated, not suicidal or homicidal Current Patient Data: Labs: Laboratory Tests Test 09/01/20 13:12 09/01/20 15:28 09/01/20 16:51 White Blood Count 3.0 x10^3/uL (4.0-11.0) L Red Blood Count 4.33 x10^6/uL (4.30-5.70) Hemoglobin 10.6 g/dL (13.0-17.5) L Hematocrit 31.9 % (39.0-53.0) L Mean Corpuscular Volume 74 fL (79-100) L Mean Corpuscular Hemoglobin 25 pg (25-35) Mean Corpuscular Hemoglobin Concent 33 g/dL (31-37) Red Cell Distribution Width 20.2 % (11.5-14.5) H Platelet Count 105 x10^3/uL (140-400) L Neutrophils (%) (Auto) 39 % (31-73) Lymphocytes (%) (Auto) 56 % (24-48) H Monocytes (%) (Auto) 5 % (0-9) Eosinophils (%) (Auto) 0 % (0-3) Basophils (%) (Auto) 0 % (0-3) Neutrophils # (Auto) 1.2 x10^3/uL (1.8-7.7) L Lymphocytes # (Auto) 1.7 x10^3/uL (1.0-4.8) Monocytes # (Auto) 0.1 x10^3/uL (0.0-1.1) Eosinophils # (Auto) 0.0 x10^3/uL (0.0-0.7) Basophils # (Auto) 0.0 x10^3/uL (0.0-0.2) Platelet Estimate Decreased (ADEQUATE) Hypochromasia Slight Anisocytosis Mod Microcytosis Slight Target Cells Few Sodium Level 142 mmol/L (136-145) Potassium Level 4.1 mmol/L (3.5-5.1) Chloride Level 103 mmol/L (98-107) Carbon Dioxide Level 26 mmol/L (21-32) Anion Gap 13 (6-14) Blood Urea Nitrogen 8 mg/dL (8-26) Creatinine 1.1 mg/dL (0.7-1.3) Estimated GFR (Cockcroft-Gault) 82.1 BUN/Creatinine Ratio 7 (6-20) Glucose Level 87 mg/dL (70-99) Calcium Level 8.3 mg/dL (8.5-10.1) L Total Bilirubin 0.5 mg/dL (0.2-1.0) Aspartate Amino Transferase (AST) 148 U/L (15-37) H Alanine Aminotransferase (ALT) 55 U/L (16-63) Alkaline Phosphatase 96 U/L (46-116) Troponin I Quantitative < 0.017 ng/mL (0.000-0.055) < 0.017 ng/mL (0.000-0.055) HX-Aam-Y-Type Natriuretic Peptide 13 pg/mL (0-124) Total Protein 8.5 g/dL (6.4-8.2) H Albumin 4.1 g/dL (3.4-5.0) Albumin/Globulin Ratio 0.9 (1.0-1.7) L Lipase 136 U/L (73-393) Ethyl Alcohol Level 251 mg/dL (0-10) H Urine Collection Type Unknown Urine Color Yellow Urine Clarity Cloudy Urine pH 7.0 (<5.0-8.0) Urine Specific [place] 1.010 (1.000-1.030) Urine Protein 30 mg/dL (NEG-TRACE) Urine Glucose (UA) Negative mg/dL (NEG) Urine Ketones (Stick) Negative mg/dL (NEG) Urine Blood Trace (NEG) Urine Nitrite Negative (NEG) Urine Bilirubin Negative (NEG) Urine Urobilinogen Dipstick 2.0 mg/dL (0.2 mg/dL) Urine Leukocyte Esterase Large (NEG) Urine RBC 0 /HPF (0-2) Urine WBC Tntc /HPF (0-4) Urine Squamous Epithelial Cells Mod /LPF Urine Bacteria Few /HPF (0-FEW) Urine Opiates Screen Neg (NEG) Urine Methadone Screen Neg (NEG) Urine Barbiturates Neg (NEG) Urine Phencyclidine Screen Neg (NEG) Urine Amphetamine/Methamphetamine Neg (NEG) Urine Benzodiazepines Screen Neg (NEG) Urine Cocaine Screen Neg (NEG) Urine Cannabinoids Screen Neg (NEG) Urine Ethyl Alcohol Pos (NEG) Laboratory Tests 09/01/20 13:12 Laboratory Tests 09/01/20 13:12 Vital Signs: Vital Signs Date Time Temp Pulse Resp B/P (MAP) Pulse Ox O2 Delivery O2 Flow Rate FiO2 09/01/20 14:29 86 131/85 (100) 98 Room Air 09/01/20 12:04 98.1 12 98.1 EKG: EKG: [] Heart Score: C/O Chest Pain: Yes HEART Score for Chest Pain: HEART Score for Chest Pain Response (Comments) Value History Slighlty/Non-Suspicious 0 ECG Normal 0 Age >45 - < 65 1 Risk Factors 1 or 2 Risk Factors 1 Total 2 Risk Factors: Risk Factors: DM, Current or recent (<one month) smoker, HTN, HLP, family history of CAD, obesity. Risk Scores: Score 0 - 3: 2.5% MACE over next 6 weeks - Discharge Home Score 4 - 6: 20.3% MACE over next 6 weeks - Admit for Clinical Observation Score 7 - 10: 72.7% MACE over next 6 weeks - Early Invasive Strategies Radiology/Procedures: Radiology/Procedures: [] Course & Med Decision Making: Course & Med Decision Making Pertinent Labs and Imaging studies reviewed. (See chart for details) Patient 60-year-old male who presents to the emergency room multiple complaints. Patient has had a constant chest pain since he woke up this morning. Patient also fell backwards hitting his head and neck. He is complaining of multiple areas of pain. During my interview with the patient, his main focus is that he needs anxiety and pain medication. Patient states that his chest pain is the worst. He will be given nitro and aspirin. Patient reports a 4-minute loss of consciousness, however given that patient is neurologically intact at this time and has no signs of obvious trauma this seems less likely. Patient is intoxicated at this time. CT head, cervical spine will be ordered to rule out traumatic injury. Cardiac work-up was ordered. Patient was admitted 1 month ago for cardiac evaluation which was normal at that time. Patient states this pain is similar. Work-up is unremarkable. CT abdomen pelvis is normal. CT head is normal. Lab work is normal. Delta troponin is normal. Patient is f eeling significantly better. He is requesting something for sleep. We will place him on hydroxyzine. He is also requesting something for reflux. He is requesting something for dry eyes. Prescriptions were written as appropriate. We will give him a list of primary care doctors. Patient's test results and vitals while in the ED were fully reviewed and discussed with the patient. Patient is stable and at this time does not need admission to the hospital. We have discussed strict return precautions and the importance of following up with their Primary Care Physician. Patient stated understanding and was given an opportunity to ask any questions. Patient is in agreement with plan. Dragon Disclaimer: Dragon Disclaimer: This electronic medical record was generated, in whole or in part, using a voice recognition dictation system. Departure Departure Impression: Primary Impression: Fall Additional Impressions: Chest pain Alcohol abuse Disposition: HOME / SELF CARE / HOMELESS Condition: STABLE Referrals: NO PCP (PCP) Patient Instructions: Alcohol Problems, Chest Pain (Nonspecific), Head Injury, Adult Scripts Mag Carb/Al Hydrox/Alginic Ac (ACID GONE ANTACID LIQUID) 355 Ml Oral.susp 355 ML PO Q6H PRN for GI SYMPTOMS for 30 Days, MISC Prov: RASTA REDDY MD 09/01/20 Hydroxyzine Hcl (HYDROXYZINE HCL) 25 Mg Tablet 1 TAB PO QHS PRN for INSOMNIA, MAY REPEAT X1 for 30 Days, #30 TAB Prov: RASTA REDDY MD 09/01/20 Cyclosporine (RESTASIS) 1 Each Droperette 1 DROP EACHEYE BID, #60 VIAL 3 Refills Prov: RASTA REDDY MD 09/01/20 Problem Qualifiers RASTA REDDY MD September 01, 2020 13:54
[2020-09-01 14:29] VITALS: BP 131/85
--- NOTE | 2020-09-01 14:59 | RAD ---
XR CHEST 1V History: Reason: chest pain,ALSO CT C-COLLAR PT FELL / Comparison: July 26, 2020 Findings: No consolidation or pleural effusion. Normal heart size. No pneumothorax. Internal fixation right hum erus. Impression: 1. No acute cardiopulmonary process. Electronically signed by: Ar Claudio DO (09/01/2020 2:56 PM) [id number]
[2020-09-01 15:39] LABS: BILIRUBIN,URINE NEGATIVE (NEG); CLARITY,URINE CLOUDY; COLOR,URINE YELLOW; NITRITE,URINE NEGATIVE (NEG); PROTEIN,URINE 30 mg/dL (NEG-TRACE)
[2020-09-01 15:44] LABS: BARBITURATES NEG (NEG); BENZODIAZEPINES NEG (NEG); CANNABINOIDS NEG (NEG); COCAINE NEG (NEG); METHADONE NEG (NEG); OPIATES NEG (NEG); PHENCYCLIDINE NEG (NEG)
[2020-09-01 15:45] LABS: BACTERIA,URINE FEW /HPF (0-FEW); RBC,URINE 0 /HPF (0-2); WBC,URINE TNTC /HPF (0-4)
[2020-09-01 15:46] LABS: AMPHETAMINE/METHAMPHETAMINE NEG (NEG)
--- NOTE | 2020-09-01 15:54 | RAD ---
EXAM: 1. CT HEAD WITHOUT CONTRAST. 2. CT CERVICAL SPINE WITHOUT CONTRAST. HISTORY: Fall, trauma. TECHNIQUE: Computed tomography of the head and cervical spine was performed without intravenous contr ast. One or more of the following individualized dose reduction techniques were utilized for this exa mination: 1. Automated exposure control. 2. Adjustment of the mA and/or kV according to patient size. 3. Use of iterative reconstruction technique. COMPARISON: 07/26/2020. FINDINGS: There is no intracranial hemorrhage. Hypoattenuation within the periventricular [place] er indicates mild chronic microangiopathic change. Prominence of the lateral ventricles and hemispher ic sulci indicates mild atrophy. The visualized paranasal sinuses appear clear. The orbits are unremarkable. The temporal bones are un remarkable. The calvarium reveals no suspicious lesions. Alignment is maintained. The craniocervical junction is unremarkable. No fractures are identified. De generative disc disease is moderate from C5 through C7 and mild at C4-5. There is no prevertebral sof t tissue swelling. At C2-3, there is no significant stenosis. At C3-4, there is a small posterior disc bulge. Central canal stenosis appears at least mild with min imal anteroposterior central canal diameter 8.5 mm. Neural foraminal stenosis is mild on the right. At C4-5, there is a small posterior disc bulge. Uncovertebral osteoarthritis is mild bilaterally. Tico ral foraminal stenosis is mild bilaterally. At C5-6, there is a small posterior disc-osteophyte complex. Uncovertebral osteoarthritis is mild devan aterally. There is no clear stenosis. At C6-7, there is a small posterior disc-osteophyte complex. Uncovertebral osteoarthritis is mild devan aterally. There is no clear stenosis. IMPRESSION: 1. No acute intracranial findings. Mild atrophy and chronic microangiopathic white matter change. 2. No cervical fracture or acute malalignment. Mild to moderate degenerative changes as above. Electronically signed by: Leslie Nguyễn MD (09/01/2020 3:51 PM) [facility]
--- NOTE | 2020-09-01 15:59 | RAD ---
EXAM: 1. CT ABDOMEN/PELVIS WITHOUT CONTRAST. 2. CT LUMBAR SPINE WITHOUT CONTRAST. HISTORY: Fall, pain. History of stomach cancer. TECHNIQUE: Computed tomography of the lumbar spine, abdomen and pelvis was performed without intraven ous contrast. One or more of the following individualized dose reduction techniques were utilized for this examination: 1. Automated exposure control. 2. Adjustment of the mA and/or kV according to patient size. 3. Use of iterative reconstruction technique. COMPARISON: 07/27/2020. FINDINGS: Lung windows through the visualized portions of the bases reveal mild atelectasis. Bone win dows reveal no suspicious lesions. Small lucent foci within the iliac bones are stable and likely aimee ign. Lumbar alignment is maintained. No fractures are identified. Degenerative disc disease is mild at L5- S1. There is mild bilateral foraminal narrowing from a small posterior disc-osteophyte complex at L5- S1. There is no central canal stenosis throughout. Hypoattenuation of the hepatic parenchyma indicates mild diffuse hepatic steatosis. There are no bere r focal lesions without contrast. The gallbladder is surgically absent. The common duct measures 6 mm and tapers normally distally. The pancreas, spleen, adrenal glands and kidneys are unremarkable with out contrast. There are no pathologically enlarged lymph nodes. The prostate is mildly enlarged 4.1 cm. There is mo derate nonfocal bladder wall thickening. Changes of partial gastrectomy are noted. There is no small bowel obstruction. There is no evidence of appendicitis. IMPRESSION: 1. No evidence of acute injury to the abdomen, pelvis or lumbar spine. 2. Mild diffuse hepatic steatosis. 3. Nonfocal bladder wall thickening suggests chronic outlet obstruction or inflammation. Correlate urinalysis. Electronically signed by: Leslie Nguyễn MD (09/01/2020 3:57 PM) [facility]
[2020-09-01 17:13] LABS: HYPOCHROMIA SLIGHT; PLT ESTIMATE DECREASED (ADEQUATE)
[2020-09-01 17:14] LABS: ANISOCYTOSIS MOD; MICROCYTOSIS SLIGHT; TARGET CELLS FEW
[2020-09-01] MEDS ORDERED: CYCL1DRO EACHEYE (17:37)
[2020-09-01] MEDS ORDERED: HYDR25TA PO (17:37)
[2020-09-01] MEDS ORDERED: MAG355OR35 PO (17:37)
[2020-09-01] MEDS ORDERED: CEPH500C PO (17:43)
== END 2020-09-01 17:52 | disposition home or self-care (01) ==
LOC: ER 11:57
DX: R07.89 Other chest pain (principal); F10.10 Alcohol abuse, uncomplicated; Y90.9 Presence of alcohol in blood, level not specified; R51.9 Headache, unspecified; M54.2 Cervicalgia; I48.91 Unspecified atrial fibrillation; I25.10 Atherosclerotic heart disease of native coronary artery without angina pectoris; G89.29 Other chronic pain; J44.9 Chronic obstructive pulmonary disease, unspecified; Z86.73 Personal history of transient ischemic attack (TIA), and cerebral infarction without residual deficits; Z88.0 Allergy status to penicillin; Z88.8 Allergy status to other drugs, medicaments and biological substances; W18.39XA Other fall on same level, initial encounter; Y93.89 Activity, other specified; Y92.89 Other specified places as the place of occurrence of the external cause; Y99.8 Other external cause status
CPT/HCPCS: 36415; 70450; 71045; 72125; 74176; 80053; 80307; 81001; 83690; 83880; 84484; 85025; 93005; 99285; G0480

== ENCOUNTER 2020-09-25 23:43 | Emergency (ER) | payer MEDICAID ==
[~2020-09-25] VITALS: Ht 180.3 cm; Wt 81.0 kg
[~2020-09-25 23:43] MED LIST changes: +CEPH500C PO; +CYCL1DRO EACHEYE; +HYDR25TA PO; +MAG355OR35 PO
[2020-09-26] MEDS ORDERED: KETOROLAC 30 MG/ML VIAL. IVP ONE (00:45)
--- NOTE | 2020-09-26 01:14 | PHYS DOC ---
Past Medical History Past Medical History: A-Fib, CAD, Cancer, COPD, CVA, Seizure Additional Past Medical Histor: vertigo, chronic back pain, stomach cancer Past Surgical History: Cholecystectomy, Other Additional Past Surgical Histo: "they cut out some of my stomach when I had cancer.", R leg, hip, arm, foot Smoking Status: Never Smoker Alcohol Use: Heavy General Adult EDM: Chief Complaint: MULTIPLE COMPLAINTS HPI: HPI: Patient is a 60 year old male presents with multiple complaints. 1. Seizure-- Patient has a seizure history and is prescribed Dilantin. Despite being prescribed Dilantin patient does not take. Patient states he had an unwitnessed seizure at 1900 hrs. and 2300 hrs. 2. Abdominal pain-patient states around 0900 hours this morning he ate some chicken that his had brought home. Patient states he immediately had abdominal pain and vomited. 3. Palpitations and chest pain--since 1500 hrs. he has had chest pain and palpitations on and off. 4. Right leg pain. Patient states 1 week ago while in [place] he injured h is right leg. On exam patient has a hematoma to the anterior martins. Review of Systems: Review of Systems: Review of systems: Constitutional symptoms- No fever, no chills. Eyes- No Discharge, No Visual Loss Respiratory symptoms- No shortness of breath, No wheezing, No Dyspnea on Exertion Cardiovascular Systems;Positive chest pain, Positive Palpitations, No syncope Gastrointestinal symptoms: Positive abdominal pain, Positive nausea, Positive vomiting or diarrhea. Genitourinary symptoms: No dysuria. Musculoskeletal symptoms: No back pain Positive extremity pain. NEUROLOGICAL Symptoms: No headache, no generalized weakness; No focal Weakness positive seizure Heart Score: C/O Chest Pain: Yes HEART Score for Chest Pain: HEART Score for Chest Pain Response (Comments) Value History Slighlty/Non-Suspicious 0 ECG Normal 0 Age >45 - < 65 1 Risk Factors 1 or 2 Risk Factors 1 Troponin < Normal Limit 0 Total 2 Risk Factors: Risk Factors: DM, Current or recent (<one month) smoker, HTN, HLP, family history of CAD, obesity. Risk Scores: Score 0 - 3: 2.5% MACE over next 6 weeks - Discharge Home Score 4 - 6: 20.3% MACE over next 6 weeks - Admit for Clinical Observation Score 7 - 10: 72.7% MACE over next 6 weeks - Early Invasive Strategies Current Medications: Current Medications Medications (Trade) Dose Ordered Sig/[facility] Start Time Stop Time Status Last Admin Dose Admin Ketorolac Tromethamine (Toradol 30mg Vial) 30 mg 1X ONCE 09/26/20 00:45 09/26/20 00:46 DC Allergies: Allergies: Allergies Coded Allergies Type Severity Reaction Last Updated Verified Iodine and Iodide Containing Produc Allergy Severe 07/26/20 Yes Penicillins Allergy Intermediate 07/26/20 Yes Physical Exam: PE: General: alert, no acute distress. Skin: warm, dry and intact. Head:: Normocephalic, atraumatic. Neck: Trachea midline. Eyes: EOMI, Normal conjunctiva, No drainage CARDIOVASCULAR: Regular rate and rhythm RESPIRATORY: No respiratory distress Back: Full range of motion. MUSCULOSKELETAL: Full range of motion of bilateral upper and lower extremities. GASTROINTESTINAL: Abdomen soft without rebound or guarding. NEUROLOGICAL: Alert and noted to person, place and time. No neurological deficits observed Psychiatric: Cooperative. Normal judgment Current Patient Data: Vital Signs: Vital Signs Date Time Temp Pulse Resp B/P (MAP) Pulse Ox O2 Delivery O2 Flow Rate FiO2 09/26/20 00:38 97.9 82 20 147/86 (106) 99 Room Air 97.9 EKG: EKG: Normal Sinus Rhythm Rate [address] ST depression No acute DE [] Performed at 0125 Radiology/Procedures: Radiology/Procedures: [] Impression: Wet read right tib-fib no acute fractures or dislocations Course & Med Decision Making: Course & Med Decision Making Pertinent Labs and Imaging studies reviewed. (See chart for details) [] Patient was evaluated for chief complaint. Work-up consisted of laboratory analysis and radiologic imaging and EKG Results reviewed no acute abnormality Patient's pain treated with Toradol IM. Patient was discharged home with prescription and Dilantin and naproxen. Dragon Disclaimer: What the Trend Disclaimer: This electronic medical record was generated, in whole or in part, using a voice recognition dictation system. Departure Departure Impression: Primary Impression: Seizure Additional Impressions: Abdominal pain Chest pain Contusion of leg Disposition: HOME / SELF CARE / HOMELESS Condition: STABLE Referrals: NO PCP (PCP) Patient Instructions: Abdominal Pain (Nonspecific), Chest Pain (Nonspecific), Contusion, Seizure, Adult Scripts Dicyclomine Hcl (DICYCLOMINE HCL) 10 Mg Capsule 1 CAP PO TID, #20 CAP 11 Refills Prov: JOSSUE BRAVO DO 09/26/20 Phenytoin Sodium Extended (DILANTIN) 100 Mg Capsule 1 CAP PO TID, #90 CAP 2 Refills Prov: JOSSUE BRAVO DO 09/26/20 Naproxen (NAPROSYN) 500 Mg Tablet 1 TAB PO BID for pain for 30 Days, #60 TAB 0 Refills Prov: JOSSUE BRAVO DO 09/26/20 JOSSUE BRAVO DO Sep 26, 2020 01:14
[2020-09-26] MEDS ORDERED: KETOROLAC 60 MG/2 ML VIAL. IM ONE (01:45)
[2020-09-26 02:31] LABS: BASO % 0 % (0-3); EOS % 0 % (0-3); HEMATOCRIT 30.7 % (39.0-53.0); HEMOGLOBIN 10.1 g/dL (13.0-17.5); LYMPH # 1.3 x10^3/uL (1.0-4.8); LYMPH % 32 % (24-48); MEAN CORPUSCULAR HEMOGLOBIN 25 pg (25-35); MEAN CORPUSCULAR HGB CONC 33 g/dL (31-37); MEAN CORPUSCULAR VOLUME 76 fL (79-100); MONO # 0.3 x10^3/uL (0.0-1.1); MONO % 8 % (0-9); NEUT # 2.4 x10^3/uL (1.8-7.7); NEUT % 60 % (31-73); PLATELET COUNT 118 x10^3/uL (140-400); RED BLOOD COUNT 4.05 x10^6/uL (4.30-5.70); RED CELL DISTRIBUTION WIDTH 20.6 % (11.5-14.5)
[2020-09-26 02:41] LABS: CALCIUM 9.1 mg/dL (8.5-10.1); CREATININE 1.1 mg/dL (0.7-1.3); GFR 82.1
[2020-09-26 02:47] LABS: ALBUMIN 4.2 g/dL (3.4-5.0); TOTAL BILIRUBIN 0.8 mg/dL (0.2-1.0); TOTAL PROTEIN 8.3 g/dL (6.4-8.2)
[2020-09-26 03:03] LABS: % LYMPHS 36 % (24-48); % MONOS 3 % (0-10); % SEGS 61 % (35-66)
[2020-09-26 03:04] LABS: ANISOCYTOSIS MOD; HYPOCHROMIA SLIGHT; PLT ESTIMATE DECREASED (ADEQUATE)
[2020-09-26] MEDS ORDERED: NAPR-683 PO (03:08)
[2020-09-26] MEDS ORDERED: PHEN100C PO (03:08)
--- NOTE | 2020-09-26 03:18 | EKG ---
[facility] [address] [place] [address] Test Date: 2020-09-26 Test Time: 01:25:56 Pat Name: ARIANNA HERNANDEZ Department: Room: Gender: M Cost Controller: : [id number] Requested By: JOSSUE BRAVO Order Number: [id number] Reading MD: Measurements Intervals [place] Rate: 69 P: 52 CT: 178 QRS: -3 QRSD: 68 T: 31 QT: 402 QTc: 432 Interpretive Statements SINUS RHYTHM LEFTWARD AXIS NO SPECIFIC ECG ABNORMALITIES RI6.01 No previous ECG available for comparison
--- NOTE | 2020-09-26 03:31 | RAD ---
Right tibia and fibula 2 views: Reason for examination: Pain. No acute fracture or dislocation is seen. No focal lytic or blastic bone lesions are evident. No abno rmal periosteal reaction is seen. There is some degenerative change at the knee joint. No abnormaliti es apparent at the ankle joint. IMPRESSION: Degenerative changes at the right knee. No acute bony abnormality evident at the tibia or fibula. Electronically signed by: Adriana Silva MD (09/26/2020 3:29 AM) [id number]
[2020-09-26 03:32] VITALS: BP 139/63
[2020-09-26] MEDS ORDERED: DICY10CA3 PO (03:32)
== END 2020-09-26 03:42 | disposition home or self-care (01) ==
LOC: ER 23:43
DX: S80.11XA Contusion of right lower leg, initial encounter (principal); R10.9 Unspecified abdominal pain; R56.9 Unspecified convulsions; R07.9 Chest pain, unspecified; R00.2 Palpitations; I48.91 Unspecified atrial fibrillation; I25.10 Atherosclerotic heart disease of native coronary artery without angina pectoris; J44.9 Chronic obstructive pulmonary disease, unspecified; G89.29 Other chronic pain; F10.20 Alcohol dependence, uncomplicated; Z86.73 Personal history of transient ischemic attack (TIA), and cerebral infarction without residual deficits; Z90.49 Acquired absence of other specified parts of digestive tract; Z88.8 Allergy status to other drugs, medicaments and biological substances; Z88.0 Allergy status to penicillin; Y90.9 Presence of alcohol in blood, level not specified; X58.XXXA Exposure to other specified factors, initial encounter; Y93.89 Activity, other specified; Y92.89 Other specified places as the place of occurrence of the external cause; Y99.8 Other external cause status
CPT/HCPCS: 36415; 73590; 80053; 84484; 85007; 85025; 93005; 96372; 99285; J1885